=== PATIENT | male | born 1965 | race Caucasian/White ===

== ENCOUNTER 2018-05-21 14:33 | Emergency (ER) | payer OTHER ==
[~2018-05-21] VITALS: Ht 193 cm; Wt 117.9 kg
[2018-05-21 14:40] VITALS: BP 114/84
[2018-05-21] MEDS ORDERED: TETANUS-DIPTH-ACEL PERTUSSIS 0.5ML SYRG IM ONE (15:45)
[2018-05-21] MEDS ORDERED: LIDOCAINE 1% HCL (LOCAL ANESTH.) INJ 20ML MDV IJ ONE (15:45)
== END 2018-05-21 16:15 | disposition home or self-care (01) ==
LOC: ER 14:33
DX: S61.411A Laceration without foreign body of right hand, initial encounter (principal); F17.210 Nicotine dependence, cigarettes, uncomplicated; W54.0XXA Bitten by dog, initial encounter; Y93.89 Activity, other specified; Y99.8 Other external cause status; Y92.89 Other specified places as the place of occurrence of the external cause
CPT/HCPCS: 12002; 90471; 90715; 99283; J2001

== ENCOUNTER → 2018-06-24 | Outpatient (CLI) | payer OTHER ==
[2018-06-24 08:29] LABS: Urine WBC None Seen /hpf (0 - 3)
[2018-06-24 08:35] LABS: Basophils # (auto) 0 uL; Basophils % (auto) 0.5 % (0.0-2.0); Eosinophils # (auto) 0.3 uL; Eosinophils % (auto) 3.9 % (0.0-7.0); Hematocrit 49.1 % (41.0-53.0); Hemoglobin 16.4 g/dL (13.5-17.5); Lymphocytes # (auto) 2.1 uL; Lymphocytes % (auto) 25.4 % (10.0-50.0); Mean Corpuscular Hemoglobin 30.3 pg (28.0-32.0); Mean Corpuscular Hgb Conc. 33.3 g/dL (32.0-36.0); Monocytes # (auto) 0.6 uL; Monocytes % (auto) 7.7 % (0.0-12.0); Neutrophils % (auto) 62.5 % (37.0-80.0); Nucleated Red Blood Cells % 0.1 %; Platelet Count (auto) 210 10^3/uL (140-450); Red Cell Distribution Width 13.9 % (11.8-14.3); White Blood Cell 8.1 10^3/uL (4.4-10.8)
[2018-06-24 09:00] LABS: Urine Bacteria NONE SEEN /hpf (None Seen); Urine Blood Negative /uL (Negative); Urine Specific Gravity 1.023 (1.001-1.035)
[2018-06-24 10:05] LABS: Calcium 8.3 mg/dL (8.5-10.1); Potassium 4.1 mmol/L (3.5-5.1)
[2018-06-24 10:11] LABS: Albumin 3.5 g/dL (3.4-5.0); BUN/Creatinine Ratio 9.9; Bilirubin, Total 0.2 mg/dL (0.2-1.0); Total Protein 7.1 g/dL (6.4-8.2)
== END | disposition home or self-care (01) ==
LOC: LAB 08:11
PROVIDERS: ATTEND Nurse Practitioner
DX: K62.5 Hemorrhage of anus and rectum (principal); E78.5 Hyperlipidemia, unspecified
CPT/HCPCS: 36415; 80053; 80061; 81001; 82306; 82784; 83036; 83516; 84443; 85025; 86255

== ENCOUNTER → 2018-06-24 | Outpatient (CLI) | payer BC, OTHER | END | disposition home or self-care (01) | LOC: XYW 08:26 | PROVIDERS: ATTEND Internal Medicine Cardiovascular Disease | DX: R60.9 Edema, unspecified (principal) | CPT/HCPCS: 93306 ==

== ENCOUNTER → 2019-03-25 | Outpatient (CLI) | payer BC ==
[2019-03-25 16:37] LABS: Potassium 4.2 mmol/L (3.5-5.1)
[2019-03-25 16:45] LABS: Albumin 3.8 g/dL (3.4-5.0); BUN/Creatinine Ratio 9.9; Bilirubin, Total 0.4 mg/dL (0.2-1.0); Calcium 8.7 mg/dL (8.5-10.1); Total Protein 7.2 g/dL (6.4-8.2)
[2019-03-25 16:48] LABS: Basophils # (auto) 0.1 uL; Basophils % (auto) 0.8 % (0.0-2.0); Eosinophils # (auto) 0.3 uL; Hematocrit 47.1 % (41.0-53.0); Hemoglobin 15.9 g/dL (13.5-17.5); Lymphocytes # (auto) 2.9 uL; Lymphocytes % (auto) 29.8 % (10.0-50.0); Mean Corpuscular Hemoglobin 31.2 pg (28.0-32.0); Mean Corpuscular Hgb Conc. 33.8 g/dL (32.0-36.0); Mean Corpuscular Volume 92.5 fL (80.0-100.0); Monocytes # (auto) 0.8 uL; Neutrophils # (auto) 5.7 uL; Neutrophils % (auto) 58.4 % (37.0-80.0); Platelet Count (auto) 222 10^3/uL (140-450); Red Blood Cells 5.09 10^6/uL (4.5-5.90); Red Cell Distribution Width 14.2 % (11.8-14.3); White Blood Cell 9.8 10^3/uL (4.4-10.8)
== END | disposition home or self-care (01) ==
LOC: LAB 15:21
PROVIDERS: ATTEND Nurse Practitioner
DX: Z00.00 Encounter for general adult medical examination without abnormal findings (principal); E78.5 Hyperlipidemia, unspecified; R73.09 Other abnormal glucose
CPT/HCPCS: 36415; 80053; 82270; 83036; 85025

== ENCOUNTER → 2019-05-31 | Outpatient (CLI) | payer BC ==
[2019-05-31 09:58] LABS: Basophils # (auto) 0.1 uL; Basophils % (auto) 0.7 % (0.0-2.0); Eosinophils # (auto) 0.3 uL; Eosinophils % (auto) 3.3 % (0.0-7.0); Hematocrit 45.6 % (41.0-53.0); Hemoglobin 15.6 g/dL (13.5-17.5); Lymphocytes # (auto) 1.9 uL; Lymphocytes % (auto) 23.7 % (10.0-50.0); Mean Corpuscular Hemoglobin 31.4 pg (28.0-32.0); Mean Corpuscular Hgb Conc. 34.2 g/dL (32.0-36.0); Mean Corpuscular Volume 91.9 fL (80.0-100.0); Monocytes # (auto) 0.8 uL; Monocytes % (auto) 10.5 % (0.0-12.0); Neutrophils # (auto) 4.9 uL; Neutrophils % (auto) 61.8 % (37.0-80.0); Platelet Count (auto) 180 10^3/uL (140-450); Red Blood Cells 4.96 10^6/uL (4.5-5.90); Red Cell Distribution Width 13.6 % (11.8-14.3); White Blood Cell 7.9 10^3/uL (4.4-10.8)
[2019-05-31 11:07] LABS: Potassium 4.7 mmol/L (3.5-5.1)
[2019-05-31 11:19] LABS: Albumin 3.8 g/dL (3.4-5.0); BUN/Creatinine Ratio 13.2; Bilirubin, Total 0.6 mg/dL (0.2-1.0); Calcium 8.8 mg/dL (8.5-10.1); Total Protein 6.6 g/dL (6.4-8.2)
== END | disposition home or self-care (01) ==
LOC: LAB 08:50
PROVIDERS: ATTEND Nurse Practitioner
DX: E78.5 Hyperlipidemia, unspecified (principal); R73.9 Hyperglycemia, unspecified
CPT/HCPCS: 36415; 80053; 80061; 83036; 85025

== ENCOUNTER → 2019-09-06 | Outpatient (CLI) | payer BC ==
[2019-09-06 14:56] LABS: Basophils # (auto) 0.1 10 ^3/uL (0-0.2); Basophils % (auto) 1.1 % (0.0-2.0); Eosinophils # (auto) 0.7 10 ^3/uL (0-0.8); Eosinophils % (auto) 6.7 % (0.0-7.0); Hematocrit 47.9 % (41.0-53.0); Hemoglobin 16.2 g/dL (13.5-17.5); Lymphocytes # (auto) 2.7 10 ^3/uL (0.4-5.4); Lymphocytes % (auto) 24.3 % (10.0-50.0); Mean Corpuscular Hemoglobin 30.2 pg (28.0-32.0); Mean Corpuscular Hgb Conc. 33.8 g/dL (32.0-36.0); Mean Corpuscular Volume 89.4 fL (80.0-100.0); Monocytes # (auto) 1.1 10 ^3/uL (0-1.3); Monocytes % (auto) 9.8 % (0.0-12.0); Neutrophils # (auto) 6.4 10 ^3/uL (1.6-8.6); Neutrophils % (auto) 58.1 % (37.0-80.0); Nucleated Red Blood Cells % 0.1 %; Platelet Count (auto) 222 10^3/uL (140-450); Red Blood Cells 5.36 10^6/uL (4.5-5.90); Red Cell Distribution Width 13.2 % (11.8-14.3)
[2019-09-06 15:00] LABS: Urine Bacteria NONE SEEN /hpf (None Seen); Urine Blood Negative /uL (Negative); Urine WBC 2 /hpf (0 - 3)
[2019-09-06 15:11] LABS: INR 1.02 (0.9-1.15); Partial Thromboplastin Time 28.7 sec (23.64-32.05)
[2019-09-06 15:28] LABS: Albumin 3.7 g/dL (3.4-5.0); BUN/Creatinine Ratio 10.9; Calcium 9.1 mg/dL (8.5-10.1); Potassium 3.9 mmol/L (3.5-5.1)
[2019-09-06 15:31] LABS: Bilirubin, Total 0.4 mg/dL (0.2-1.0); Total Protein 7.6 g/dL (6.4-8.2)
== END | disposition home or self-care (01) ==
LOC: LAB 14:40
PROVIDERS: ATTEND Orthopaedic Surgery
DX: M70.20 Olecranon bursitis, unspecified elbow (principal); E78.5 Hyperlipidemia, unspecified
CPT/HCPCS: 36415; 80053; 81001; 85025; 85610; 85730

== ENCOUNTER → 2019-12-03 | Outpatient (CLI) | payer BC ==
[2019-12-03 09:28] LABS: Urine WBC None Seen /hpf (0 - 3)
[2019-12-03 10:06] LABS: Basophils # (auto) 0.1 10 ^3/uL (0-0.2); Basophils % (auto) 0.8 % (0.0-2.0); Eosinophils # (auto) 0.2 10 ^3/uL (0-0.8); Eosinophils % (auto) 2.3 % (0.0-7.0); Hematocrit 45.8 % (41.0-53.0); Hemoglobin 15.4 g/dL (13.5-17.5); Lymphocytes # (auto) 2.2 10 ^3/uL (0.4-5.4); Lymphocytes % (auto) 24.5 % (10.0-50.0); Mean Corpuscular Hemoglobin 29.9 pg (28.0-32.0); Mean Corpuscular Hgb Conc. 33.5 g/dL (32.0-36.0); Mean Corpuscular Volume 89.2 fL (80.0-100.0); Monocytes # (auto) 0.9 10 ^3/uL (0-1.3); Monocytes % (auto) 10.5 % (0.0-12.0); Neutrophils # (auto) 5.5 10 ^3/uL (1.6-8.6); Neutrophils % (auto) 61.9 % (37.0-80.0); Nucleated Red Blood Cells % 0.1 %; Platelet Count (auto) 219 10^3/uL (140-450); Red Blood Cells 5.14 10^6/uL (4.5-5.90); Red Cell Distribution Width 13.5 % (11.8-14.3)
[2019-12-03 10:20] LABS: Urine Bacteria NONE SEEN /hpf (None Seen); Urine Blood Negative /uL (Negative); Urine Mucus FEW (None Seen); Urine Specific Gravity 1.029 (1.001-1.035)
[2019-12-03 11:01] LABS: Albumin 3.8 g/dL (3.4-5.0); Calcium 8.7 mg/dL (8.5-10.1); Potassium 3.8 mmol/L (3.5-5.1)
[2019-12-03 11:05] LABS: BUN/Creatinine Ratio 11.9; Bilirubin, Total 0.7 mg/dL (0.2-1.0); Total Protein 7.1 g/dL (6.4-8.2)
== END | disposition home or self-care (01) ==
LOC: LAB 09:11
PROVIDERS: ATTEND Nurse Practitioner
DX: Z00.00 Encounter for general adult medical examination without abnormal findings (principal); E78.5 Hyperlipidemia, unspecified; R73.09 Other abnormal glucose
CPT/HCPCS: 36415; 80053; 80061; 81001; 83036; 84443; 85025

== ENCOUNTER → 2020-01-14 | Outpatient (CLI) | payer BC | END | disposition home or self-care (01) | LOC: LAB 12:33 | PROVIDERS: ATTEND Nurse Practitioner Family | DX: Z20.828 Contact with and (suspected) exposure to other viral communicable diseases (principal) ==

== ENCOUNTER → 2020-09-18 | Outpatient (CLI) | payer BC ==
[2020-09-18 08:49] LABS: Basophils # (auto) 0.1 10 ^3/uL (0-0.2); Basophils % (auto) 0.7 % (0.0-2.0); Eosinophils # (auto) 0.3 10 ^3/uL (0-0.8); Eosinophils % (auto) 4.1 % (0.0-7.0); Hematocrit 43.1 % (41.0-53.0); Hemoglobin 14.8 g/dL (13.5-17.5); Lymphocytes % (auto) 25.6 % (10.0-50.0); Mean Corpuscular Hemoglobin 30.3 pg (28.0-32.0); Mean Corpuscular Hgb Conc. 34.4 g/dL (32.0-36.0); Mean Corpuscular Volume 87.9 fL (80.0-100.0); Monocytes # (auto) 0.8 10 ^3/uL (0-1.3); Monocytes % (auto) 10.2 % (0.0-12.0); Neutrophils # (auto) 4.6 10 ^3/uL (1.6-8.6); Neutrophils % (auto) 59.4 % (37.0-80.0); Nucleated Red Blood Cells % 0.1 %; Platelet Count (auto) 209 10^3/uL (140-450); White Blood Cell 7.7 10^3/uL (4.4-10.8)
[2020-09-18 09:28] LABS: Urine Bacteria NONE SEEN /hpf (None Seen); Urine Blood Negative /uL (Negative); Urine Hyaline Cast FEW /lpf (0 - 2); Urine Mucus FEW (None Seen); Urine Specific Gravity 1.028 (1.001-1.035); Urine WBC 5 /hpf (0 - 3)
[2020-09-18 09:48] LABS: Potassium 4.2 mmol/L (3.5-5.1)
[2020-09-18 10:06] LABS: Albumin 3.7 g/dL (3.4-5.0); BUN/Creatinine Ratio 18.9; Bilirubin, Total 0.4 mg/dL (0.2-1.0); Calcium 8.7 mg/dL (8.5-10.1)
== END | disposition home or self-care (01) ==
LOC: LAB 08:32
PROVIDERS: ATTEND Nurse Practitioner
DX: I10 Essential (primary) hypertension (principal); E78.5 Hyperlipidemia, unspecified; R73.9 Hyperglycemia, unspecified
CPT/HCPCS: 36415; 80053; 80061; 81001; 83036; 84443; 85025

== ENCOUNTER → 2023-04-14 | Outpatient (CLI) | payer BC | END | disposition home or self-care (01) | LOC: XYW 07:28 | PROVIDERS: ATTEND Student in an Organized Health Care Education/Training Program | DX: I51.89 Other ill-defined heart diseases (principal); R06.02 Shortness of breath | CPT/HCPCS: 93306 ==

== ENCOUNTER 2023-04-17 10:22 | Inpatient (IN) | payer BC ==
[~2023-04-17] VITALS: Ht 193 cm; Wt 103.3 kg
[2023-04-17] MEDS ORDERED: ASPirin-EC 325mg tab PO ONE (11:15)
[2023-04-17 11:33] LABS: Basophils # (auto) 0.1 10 ^3/uL (0-0.2); Basophils % (auto) 0.9 % (0.0-2.0); Eosinophils # (auto) 0.3 10 ^3/uL (0-0.8); Eosinophils % (auto) 2.6 % (0.0-7.0); Hematocrit 47.2 % (41.0-53.0); Hemoglobin 15.8 g/dL (13.5-17.5); Lymphocytes # (auto) 1.8 10 ^3/uL (0.4-5.4); Lymphocytes % (auto) 17.3 % (10.0-50.0); Mean Corpuscular Hemoglobin 29.8 pg (28.0-32.0); Mean Corpuscular Hgb Conc. 33.4 g/dL (32.0-36.0); Mean Corpuscular Volume 89.4 fL (80.0-100.0); Monocytes % (auto) 9.6 % (0.0-12.0); Neutrophils # (auto) 7.1 10 ^3/uL (1.6-8.6); Neutrophils % (auto) 69.6 % (37.0-80.0); Nucleated Red Blood Cells % 0.1 %; Red Blood Cells 5.28 10^6/uL (4.5-5.90); Red Cell Distribution Width 16.4 % (11.8-14.3); White Blood Cell 10.3 10^3/uL (4.4-10.8)
[2023-04-17 11:41] LABS: Urine Bacteria NONE SEEN /hpf (None Seen); Urine Blood 1+ /uL (Negative); Urine Clarity Clear (Clear); Urine Color Yellow (Yellow); Urine Hyaline Cast MOD /lpf (0 - 2); Urine Mucus FEW (None Seen); Urine Protein, UAD 3+ (Negative); Urine Specific Gravity 1.027 (1.001-1.035); Urine Urobilinogen Normal (Negative); Urine WBC 4 /hpf (0 - 3); Urine pH 6.5 (5.0-8.0)
[2023-04-17 11:50] LABS: INR 1.1 (0.9-1.15); Prothrombin Time 11.5 sec (9.3-11.8)
[2023-04-17 11:50] LABS: Base Excess -2.9 mmol/L (-2.0-2.0)
[2023-04-17 11:51] LABS: Alanine Aminotransferase 22 U/L (7-40); Albumin 3.8 g/dL (3.2-4.8); Alkaline Phosphatase 204 U/L (46-116); Anion Gap 8 (5-15); Aspartate Aminotransferase 34 U/L (13-40); BUN/Creatinine Ratio 12.7 (10.0-20.0); Bilirubin, Total 0.6 mg/dL (0.2-1.0); Blood Urea Nitrogen 32 mg/dL (9-23); Calcium 8.9 mg/dL (8.7-10.4); Carbon Dioxide 22 mmol/L (20-30); Chloride 109 mmol/L (98-107); Glucose 123 mg/dL (74-106); Lipase 56 U/L (12-53); Potassium 4.7 mmol/L (3.5-5.1); Sodium 139 mmol/L (136-145); Total Protein 5.7 g/dL (5.7-8.2)
[2023-04-17] MEDS ORDERED: SODIUM CHLORIDE 0.9% 1,000 ML IV SCH (17:15)
[2023-04-17] MEDS ORDERED: MORPHINE SULFATE 4 MG/ML SYR/VIAL IV PRN (17:15)
[2023-04-17] MEDS ORDERED: NITROGLYCERIN 0.4 MG SL TAB SL PRN (17:15)
[2023-04-17] MEDS ORDERED: ONDANSETRON HCL 4 MG/2 ML VIAL IV PRN (17:15)
[2023-04-17] MEDS ORDERED: ACETAMINOPHEN 325 MG TAB PO PRN (17:15)
[2023-04-17 19:24] LABS: INR 1.11 (0.9-1.15); Prothrombin Time 11.6 sec (9.3-11.8)
[2023-04-17] MEDS ORDERED: ALBUTEROL SULF 2.5 MG/0.5ML(0.5%) NEB SOLN NEB PRN (19:30)
[2023-04-17 19:42] VITALS: BP 107/79; PULSE 74; RESP 20; O2SAT 96
[2023-04-17] MEDS ORDERED: ALBUTEROL MEDNEB 2.5 mg/3ml NEB NEB PRN (19:45)
[2023-04-17 20:04] VITALS: BP 144/102; PULSE 84; RESP 18; TEMP 98.1; O2SAT 99
[2023-04-17 20:28] LABS: Creatinine, Urine 144.16 mg/dL (30.0-125.0)
[2023-04-17] MEDS ORDERED: ATORVASTATIN 20 MG TAB PO SCH (22:00)
[2023-04-17] MEDS ORDERED: ALBUTEROL SULF HFA 90MCG INH 200DOSE IN SCH (22:00)
[2023-04-17] MEDS ORDERED: traZODone HCL 50 MG TAB PO SCH (22:00)
[2023-04-18] MEDS ORDERED: ASPirin 81 mg TAB PO SCH (10:00)
== END 2023-04-17 20:19 | disposition left against medical advice (07) | DRG 191 ==
LOC: ER 10:22 → TELE 17:39
PROVIDERS: ADMIT Nurse Practitioner Family; ATTEND Nurse Practitioner Family
DX: J44.1 Chronic obstructive pulmonary disease with (acute) exacerbation (principal); N17.9 Acute kidney failure, unspecified; F17.210 Nicotine dependence, cigarettes, uncomplicated; F32.A Depression, unspecified; F41.9 Anxiety disorder, unspecified; I10 Essential (primary) hypertension; Z53.29 Procedure and treatment not carried out because of patient's decision for other reasons
CPT/HCPCS: 36415; 36600; 71045; 78582; 80053; 81001; 82570; 82805; 83690; 83735; 83880; 84300; 84484; 85025; 85379; 85610; 93005; 93970; G0378

== ENCOUNTER → 2023-10-28 | Outpatient (CLI) | payer BC | END | disposition home or self-care (01) | LOC: XYW 08:03 | PROVIDERS: ATTEND Student in an Organized Health Care Education/Training Program | DX: I10 Essential (primary) hypertension (principal) | CPT/HCPCS: 93306 ==

== ENCOUNTER 2025-01-08 10:17 | Emergency (ER) | payer BC ==
[~2025-01-08] VITALS: Ht 177.8 cm; Wt 90.0 kg
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
[2025-01-08] MEDS ORDERED: DICL50TA2 PO (12:34)
[2025-01-08] MEDS ORDERED: CYCL-839 PO (12:34)
[2025-01-08 12:59] VITALS: BP 122/80; PULSE 69; RESP 16; TEMP 98.6; O2SAT 97
== END 2025-01-08 13:02 | disposition home or self-care (01) ==
LOC: EDBD 10:17 → ER 10:17
DX: M62.838 Other muscle spasm (principal); F17.210 Nicotine dependence, cigarettes, uncomplicated; F41.9 Anxiety disorder, unspecified; F32.A Depression, unspecified; V43.52XA Car driver injured in collision with other type car in traffic accident, initial encounter; Y93.89 Activity, other specified; Y92.410 Unspecified street and highway as the place of occurrence of the external cause; Y99.8 Other external cause status
CPT/HCPCS: 72040

== ENCOUNTER → 2025-02-08 | Outpatient (CLI) | payer BC ==
[~2025-02-08] VITALS: Ht 193 cm; Wt 90.7 kg
[~2025-02-08] MED LIST: CYCL-839 PO; DICL50TA2 PO
[2025-02-08] MEDS: REGADENOSON 0.4 MG/5 ML SYRG IV ONE ×2 (11:19→11:23)
--- NOTE | 2025-02-08 15:38 | DVHSR ---
APPROVED REPORT Exam: Nuclear Stress Test BMI: 0 Stress Test Details HR Max Heart Rate (APMHR): 162.159773 bpm Target HR (85% APMHR): 137.681583 bpm BP ECG Stress ECG Conclusion lvef 51% no severe ischemia is noted NM EXAM: Myocardial Perfusion REST/STRESS Imaging Protocol: Rest Tc-99m/Stress Tc-99m 1 day Resting Data Rest SPECT myocardial perfusion imaging was performed in supine position 60 minutes following the int ravenous injection of 10.9 mCi of Tc-99m Sestamibi. Time of rest injection: 09:50 Date: 02/08/2025 Time of rest imagin:50 Date: 02/08/2025 Administration Route: IV Administration Site: Right AC Pharmacologic Stress Pharmacologic stress test was performed by injecting Regadenoson 0.4 mg IV push followed by the intra venous injection of 30.7 mCi of Tc-99m Sestamibi. Time of stress injection: 11:15 Date: 02/08/2025 Time of stress imagin:15 Date: 02/08/2025 Administration Route: IV Administration Site: Right AC Gated Stress SPECT was performed 60 minutes after stress injection. The images were gated to evaluate regional wall motion and calculate left ventricular ejection fracti on. Stress only was performed in the Supine position. Nuclear Conclusion lvef 51% no severe ischemia is noted
== END | disposition home or self-care (01) ==
LOC: XYW 09:19
PROVIDERS: ATTEND Internal Medicine
DX: Z01.810 Encounter for preprocedural cardiovascular examination (principal); N18.6 End stage renal disease
CPT/HCPCS: 78452; 93017; A9500; J2785

== ENCOUNTER 2025-02-11 11:07 | Outpatient (CLI) | payer BC ==
[2025-02-11 11:40] LABS: Urine Protein, UAD 2+ (Negative)
[2025-02-11 11:53] LABS: INR 1.08 (0.9-1.15); Partial Thromboplastin Time 28.8 SEC (24.5-34.5); Prothrombin Time 11.4 sec (9.3-11.8)
[2025-02-11 12:12] LABS: Alanine Aminotransferase 13 U/L (7-40); Albumin 4.5 g/dL (3.2-4.8); Alkaline Phosphatase 88 U/L (46-116); Anion Gap 10 (5-15); BUN/Creatinine Ratio 3.8 (10.0-20.0); Bilirubin, Total 0.6 mg/dL (0.2-1.0); Carbon Dioxide 29 mmol/L (20-31); Chloride 101 mmol/L (98-107); Glucose 92 mg/dL (74-106); Potassium 4.5 mmol/L (3.5-5.1); Sodium 140 mmol/L (136-145); Total Protein 6.6 g/dL (5.7-8.2)
[2025-02-11 12:15] LABS: Blood Urea Nitrogen 26 mg/dL (9-23); Calcium 7.9 mg/dL (8.7-10.4)
== END 2025-02-11 17:00 | disposition home or self-care (01) ==
LOC: LAB 11:07
PROVIDERS: ATTEND Nurse Practitioner
DX: Z01.812 Encounter for preprocedural laboratory examination (principal); N18.6 End stage renal disease
CPT/HCPCS: 36415; 80053; 81001; 85610; 85730

== ENCOUNTER 2025-05-30 08:22 | Inpatient (IN) | payer BC ==
[~2025-05-30] VITALS: Ht 188 cm; Wt 97.5 kg
--- NOTE | 2025-05-30 09:23 | ED.PDOC ---
GI ASSESSMENT HPI Comments 59 year old male with PMHx cancer, ESRD presents to the ED with a chief complaint of nausea/vomiting onset 10 days. Patient states he has been experiencing nausea, vomiting, diarrhea for the past 10 days as well as diffused abdominal pain, generalized weakness. Patient states he feels dehydrated, came to ED today. Patient currently receives chemo 3 times a week. Denies fever, chills, hematemesis, dizziness, dysuria, hematuria, melena, blood in stool. No other symptoms or modifying factors present at this time. Chief Complaint: Nausea/Vomiting Time Seen by MD: 09:10 Primary Care Provider: LYDIA Sanders Notes: Medications, Allergies Allergies: Coded Allergies: NO KNOWN ALLERGIES (Unverified , 05/21/18) Home Meds Active Scripts Diclofenac Potassium (Diclofenac Potassium) 50 Mg Tab, 1 TAB PO TIDP for 10 Days, #30 TAB Prov:NY BARRIENTOS MD 01/08/25 Cyclobenzaprine Hcl (Cyclobenzaprine Hcl) 10 Mg Tab, 10 MG PO TID for 10 Days, #30 TAB Prov:NY BARRIENTOS MD 01/08/25 Information Source: Patient Mode of Arrival: Ambulatory Timing: Days Duration: Since onset Prehospital treatment: None Stool: Watery Severity: Moderate Recent: None Recent Hx of: None Pain Location: Diffuse Modifying Factors: Nothing Associated sign and symptoms: Nausea, Vomiting, Diarrhea, Abdominal Pain Past Medical History PAST MEDICAL HISTORY: Anxiety, Cancer, Depression, ESRD Surgical History: Denies all surgeries Family History Family History: Unknown Social History Smoker: Cigarettes Lives In: Home Constitutional: reports: weakness; denies: chills, diaphoresis, fatigue, fever, malaise, sweats, others EENTM: denies: blurred vision, double vision, ear bleeding, ear discharge, ear drainage, ear pain, ear ringing, eye pain, eye redness, hearing loss, mouth pain, mouth swelling, nasal discharge, nose bleeding, nose congestion, nose pain, photophobia, tearing, throat pain, throat swelling, voice changes, others Respiratory: denies: cough, hemoptysis, orthopnea, SOB at rest, shortness of breath, SOB with excertion, stridor, wheezing, others Cardiovascular: denies: chest pain, dizzy spells, diaphoresis, Dyspnea on exertion, edema, irregular heart beat, left arm pain, lightheadedness, palpitations, PND, syncope, others Gastrointestinal: reports: abdominal pain, diarrhea, nausea, vomiting; denies: abdomen distended, blood streaked bowels, constipated, dysphagia, difficulty swallowing, hematemesis, melena, poor appetite, poor fluid intake, rectal bleeding, rectal pain, others Genitourinary: denies: burning, dysuria, flank pain, frequency, hematuria, incontinence, penile discharge, penile sore, pain, testicle pain, testicle swelling, urgency, others Neurological: reports: weakness; denies: dizziness, fainting, headache, left sided numbness, left sided weakness, numbness, paresthesia, pre-existing deficit, right sided numbness, right sided weakness, seizure, speech problems, tingling, tremors, others Musculoskeletal: denies: back pain, gout, joint pain, joint swelling, muscle pain, muscle stiffness, neck pain, others Integumetry: denies: bruises, change in color, change in hair/nails, dryness, laceration, lesions, lumps, rash, wounds, others Allergic/Immunocompromised: denies: Difficulty Healing, Frequent Infections, Hives, Itching, others Hematologic/Lymphatic: denies: anemia, blood clots, easy bleeding, easy bruising, swollen glands, others Endocrine: denies: excessive hunger, excessive sweating, excessive thirst, excessive urination, flushing, intolerance to cold, intolerance to heat, unexplained weight gain, unexplained weight loss, others Psychiatric: denies: anxiety, bipolar disorder, depression, hopeless, panic disorder, schizophrenia, sleepless, suicidal, others All Other Systems: Reviewed and Negative Physical Exam General Appearance: Moderate Distress, Normal HEENT: Normal ENT Inspection, Pharynx Normal, TMs Normal Neck: Full Range of Motion, Non-Tender, Normal, Normal Inspection Respiratory: Chest Non-Tender, Lungs Clear, No Accessory Muscle Use, No Respiratory Distress, Normal Breath Sounds Cardiovascular: No Edema, No JVD, No Murmur, No Gallop, Normal Peripheral Pulses, Regular Rate/Rhythm Breast Exam: Deferred Gastrointestinal: No Organomegaly, Non Tender, No Pulsatile Mass, Normal Bowel Sounds, Soft Genitalia: Deferred Pelvic: Deferred Rectal: Deferred Extremities: No calf tenderness, Normal capillary refill, Normal inspection, Normal range of motion, Non-tender, No pedal edema Musculoskeletal : Apperance: Normal Neurologic: Alert, carburetor repairer II-XII nml as Tested, No Motor Deficits, Normal Affect, Normal Mood, No Sensory Deficits Cerebellar Function: Normal Reflexes: Normal Skin: Dry, Normal Color, Warm Lymphatic: No Adenopathy Was a procedure done? Was a procedure done?: No GI differential Dx Differential Diagnosis: Dehydration, Electrolyte Imbalance, Viral X-Ray, Labs, Meds, VS Vital Signs Date Time Temp Pulse Resp B/P (MAP) Pulse Ox O2 Delivery O2 Flow Rate FiO2 05/30/25 11:26 98.7 89 12 134/101 (112) 96 98.7 05/30/25 11:22 78 16 118/68 05/30/25 10:06 91 12 120/89 05/30/25 09:34 99.3 91 12 120/89 (99) 97 99.3 05/30/25 08:27 99.1 93 18 148/94 98 99.1 Lab Test 05/30/25 09:57 Range/Units Sodium Level 138 136-145 mmol/L Potassium Level 4.6 3.5-5.1 mmol/L Chloride Level 98 98-107 mmol/L Carbon Dioxide Level 21 20-31 mmol/L Anion Gap 19 H 5-15 Blood Urea Nitrogen 58 H 9-23 mg/dL Creatinine 9.31 H 0.700-1.30 mg/dL Glomerular Filtration Rate Calc 6 >90 mL/min BUN/Creatinine Ratio 6.2 L 10.0-20.0 Serum Glucose 88 74-106 mg/dL Lactic Acid Level 1.2 0.4-2.0 mmol/L Calcium Level 7.6 L 8.7-10.4 mg/dL Total Bilirubin 0.5 0.2-1.0 mg/dL Aspartate Amino Transferase (AST) 31 13-40 U/L Alanine Aminotransferase (ALT) 19 7-40 U/L Alkaline Phosphatase 66 46-116 U/L Total Protein 6.8 5.7-8.2 g/dL Albumin 4.3 3.2-4.8 g/dL Lipase 29 12-53 U/L Current Medications Medications (Trade) Dose Ordered Sig/Leda Route Start Time Stop Time Status Last Admin Sodium Chloride 1,000 ml @ 1,000 mls/hr Q1H ONCE IV 05/30/25 09:30 05/30/25 10:29 DC 05/30/25 10:08 Pantoprazole Sodium (Protonix) 40 mg ONCE ONCE IV 05/30/25 09:30 05/30/25 09:31 DC 05/30/25 10:05 Ondansetron HCl (Zofran) 4 mg ONCE ONCE IV 05/30/25 09:30 05/30/25 09:31 DC 05/30/25 10:05 Morphine Sulfate 4 mg ONCE ONCE IV 05/30/25 09:30 05/30/25 09:31 DC 05/30/25 10:06 Sodium Chloride 1,000 ml @ 1,000 mls/hr Q1H ONCE IV 05/30/25 12:00 05/30/25 12:59 DC 05/30/25 12:04 Time of 1ST Reevaluation: 09:40 Reevaluation 1ST: Unchanged Patient Education/Counseling: Diagnosis, Treatment, Prognosis Family Education/Counseling: No Family Present SEPSIS Sepsis Screen Date sepsis recognized/suspect: May 30, 2025 Time Sepsis recognized/suspect: 828 Recent Procedure: No On Antibiotic Therapy: No Respiratory Rate >20: No Heart Rate >90: Yes Temp<36 C (96.8 F) or >38.3 C: No SBP <90 or MAP <65 mmHG: No New Acute Mental Status Change: No Is the patient on CPAP, BIPAP,: No Physician Orders Complete Blood Count (05/30/25 11:46) Chest Portable (05/30/25 12:53) Vital Signs Date Time Temp Pulse Resp B/P (MAP) Pulse Ox O2 Delivery O2 Flow Rate FiO2 05/30/25 11:26 98.7 89 12 134/101 (112) 96 98.7 05/30/25 11:22 78 16 118/68 05/30/25 10:06 91 12 120/89 05/30/25 09:34 99.3 91 12 120/89 (99) 97 99.3 05/30/25 08:27 99.1 93 18 148/94 98 99.1 Laboratory Tests Test 05/30/25 09:57 Lactic Acid Level 1.2 mmol/L (0.4-2.0) Medications Medications Dose Ordered Sig/Leda Route Start Time Stop Time Status Last Admin Dose Admin Morphine Sulfate 4 mg ONCE ONCE IV 05/30/25 09:30 05/30/25 09:31 DC 05/30/25 10:06 Ondansetron HCl 4 mg ONCE ONCE IV 05/30/25 09:30 05/30/25 09:31 DC 05/30/25 10:05 Pantoprazole Sodium 40 mg ONCE ONCE IV 05/30/25 09:30 05/30/25 09:31 DC 05/30/25 10:05 Sodium Chloride 1,000 ml @ 1,000 mls/hr Q1H ONCE IV 05/30/25 09:30 05/30/25 10:29 DC 05/30/25 10:08 Sodium Chloride 1,000 ml @ 1,000 mls/hr Q1H ONCE IV 05/30/25 12:00 05/30/25 12:59 DC 05/30/25 12:04 Departure 1 Departure Time of Disposition: 13:12 (Patient with intractable pain and inability to tolerate p.o.. Patient also diffuse watery diarrhea. We will admit patient for further workup and expert consultation) Impression: Primary Impression: Severe dehydration Additional Impressions: Diarrhea Intractable pain Cancer Disposition: ADMITTED INPATIENT Admit to: Med Surg Condition: Guarded Critical Care Note Critical Care Time?: No Stability Stability form required: No Heart Score Heart Score: Heart Score Response (Comments) Value History N/A 0 EKG N/A 0 Age N/A 0 Risk Factors N/A 0 Troponin N/A 0 Total 0 I personally scribed for DAO DAVIS MD ([email or web address]) on 05/30/25 at 09:23. Electronically submitted by Grace Jerry ([email or web address]). I personally scribed for DAO DAVIS MD ([email or web address]) on 05/30/25 at 09:23. Electronically submitted by Grace Jerry ([email or web address]). DAO DAVIS MD May 30, 2025 09:23
[2025-05-30] MEDS: PANTOPRAZOLE 40 MG/10 ML VIAL INJ IV ONE (10:05)
[2025-05-30] MEDS: ONDANSETRON HCL 4 MG/2 ML VIAL IV ONE (10:05)
[2025-05-30] MEDS: MORPHINE SULFATE 4 MG/ML SYR/VIAL IV ONE (10:06)
[2025-05-30] MEDS: SODIUM CHLORIDE 0.9% 1,000 ML IV ONE ×2 (10:08→12:04)
[2025-05-30 10:31] LABS: Alanine Aminotransferase 19 U/L (7-40); Alkaline Phosphatase 66 U/L (46-116); Anion Gap 19 (5-15); BUN/Creatinine Ratio 6.2 (10.0-20.0); Carbon Dioxide 21 mmol/L (20-31); Glucose 88 mg/dL (74-106); Lipase 29 U/L (12-53); Potassium 4.6 mmol/L (3.5-5.1); Sodium 138 mmol/L (136-145); Total Protein 6.8 g/dL (5.7-8.2)
[2025-05-30 10:32] LABS: Albumin 4.3 g/dL (3.2-4.8); Bilirubin, Total 0.5 mg/dL (0.2-1.0)
[2025-05-30 10:35] LABS: Blood Urea Nitrogen 58 mg/dL (9-23); Calcium 7.6 mg/dL (8.7-10.4); Chloride 98 mmol/L (98-107)
[2025-05-30 13:31] LABS: Hemoglobin 8.2 g/dL (13.5-17.5); Nucleated Red Blood Cells % 0.2 %
[2025-05-30 13:32] LABS: Hematocrit 24.5 % (41.0-53.0); Mean Corpuscular Hemoglobin 34.5 pg (28.0-32.0); Mean Corpuscular Volume 103.5 fL (80.0-100.0)
--- NOTE | 2025-05-30 13:46 | DVH ---
CHEST RADIOGRAPH Indication: epigastric pain Technique: Single frontal view of the chest was obtained Comparison: XY CHEST XRAY 1 VIEW on DOS: 04/17/23 FINDINGS: Lines and Tubes: Right IJ double-lumen hemodialysis catheter. Lungs: [id number] pulmonary edema. No focal consolidation. Pleura: No effusion. No pneumothorax. Cardiomediastinal contours: Unremarkable Bones: No acute osseous abnormality. IMPRESSION: 1. [id number] pulmonary edema. No focal consolidation.
[2025-05-30] MEDS ORDERED: DOCUSATE SOD 100 MG CAP PO PRN (14:45)
[2025-05-30] MEDS ORDERED: PANT40T PO (15:02)
[2025-05-30] MEDS ORDERED: CARV25TA55 PO (15:02)
[2025-05-30] MEDS ORDERED: GABA-1251 PO (15:03)
[2025-05-30] MEDS ORDERED: LISI40TA16 PO (15:03)
[2025-05-30] MEDS ORDERED: AMLO1TAB22 PO (15:03)
[2025-05-30] MEDS ORDERED: TRAZ-228 PO (15:03)
[2025-05-30] MEDS ORDERED: CALC667C PO (15:03)
--- NOTE | 2025-05-30 15:05 | DVHHP2 ---
History of Present Illness Reason for Visit: Nausea and vomiting History of Present Illness Wilian Johnson is a 59-year-old male with past medical history of hypertension, hyperlipidemia, ESRD on HD, cancer, depression, and anxiety, who came to the hospital for nausea and vomiting. Patient states he has been experiencing nausea and vomiting intermittently for the last 10 days. He states he was last able to eat a sandwich a couple days ago and keep it down. Today after receiving fluids and medications he was able to eat some food and keep it down. Cardiovascular: HTN, hyperipidemia Pulmonary: COPD Renal/: Acute renal failure Past Surgical History: Other (left knee) Smoke: No ALCOHOL: none Drugs: None Lives: Alone Domestic Violence: Neg Review of Systems Constitutional: No: Fever, Chills, Sweats, Weakness, Malaise, Other Eyes: No: Pain, Vision change, Conjunctivae inflammation, Eyelid inflammation, Other, Redness ENT: No: Ear pain, Ear discharge, Nose pain, Nose discharge, Nose congestion, Mouth pain, Mouth swelling, Throat pain, Throat swelling, Other Respiratory: No: Cough, Dry, Shortness of breath, SOB with excertion, Wheezing, Hemoptysis, Pleuritic Pain, Sputum, Wheezing, Other Cardiovascular: No: Chest Pain, Palpitations, Orthopnea, Paroxysmal Noc. Dyspnea, Edema, Lt Headedness, Other Gastrointestinal: Nausea, Vomiting, Abdominal Pain; No: Diarrhea, Constipation, Melena, Hematochezia, Other Genitourinary: No Dysuria, No Frequency, No Incontinence, No Hematuria, No Retention, No Other Musculoskeletal: No: other, neck pain, shoulder pain, arm pain, back pain, hand pain, leg pain, foot pain Skin: No: Rash, Lesions, Jaundice, Bruising, Other Neurological: No: Weakness, Numbness, Incoordination, Change in speech, Confusion, Seizures, Other Allergies: Coded Allergies: NO KNOWN ALLERGIES (Unverified , 05/21/18) Medications Current Medications Medications Dose Ordered Sig/Leda Route Start Time Stop Time Status Last Admin Dose Admin Acetaminophen/ Hydrocodone Bitart 1 tab Q4HP PRN PO 05/30/25 14:45 Ondansetron HCl 4 mg Q4HP PRN IV 05/30/25 14:45 Docusate Sodium 100 mg BIDPRN PRN PO 05/30/25 14:45 Acetaminophen 650 mg Q6HP PRN PO 05/30/25 14:45 Exam Vital Signs Vital Signs Date Time Temp Pulse Resp B/P (MAP) Pulse Ox O2 Delivery O2 Flow Rate FiO2 05/30/25 14:46 98.6 88 16 136/94 (108) 96 98.6 General Appearance: Alert, Oriented X3, Cooperative, mild distress HEENT: Atraumatic, PERRLA Respiratory: Clear to auscultation, Normal air movement Cardiovascular: Regular rate, Normal S1, No murmurs, Gallops Abdominal: Normal bowel sounds, Soft, No tenderness Extremities: No clubbing, No cyanosis, No edema, Normal pulses Skin: No rashes, No breakdown, No significant lesion Neuro: Normal gait, Normal speech, Other (generalized weakness) Psych/Mental Status: Mental status NL, Mood NL Labs/Xrays Labs Test 05/30/25 13:00 05/30/25 09:57 Range/Units White Blood Count 3.1 L 4.4-10.8 10^3/uL Red Blood Count 2.37 L 4.5-5.90 10^6/uL Hemoglobin 8.2 L 13.5-17.5 g/dL Hematocrit 24.5 L 41.0-53.0 % Mean Corpuscular Volume 103.5 H 80.0-100.0 fL Mean Corpuscular Hemoglobin 34.5 H 28.0-32.0 pg Mean Corpuscular Hemoglobin Concent 33.3 32.0-36.0 g/dL Red Cell Distribution Width 16.5 H 11.8-14.3 % Platelet Count 97 L 140-450 10^3/uL Mean Platelet Volume 9.8 6.9-10.8 fL Neutrophils (%) (Auto) 56.2 37.0-80.0 % Lymphocytes (%) (Auto) 18.1 10.0-50.0 % Monocytes (%) (Auto) 14.2 H 0.0-12.0 % Eosinophils (%) (Auto) 9.9 H 0.0-7.0 % Basophils (%) (Auto) 1.6 0.0-2.0 % Neutrophils # (Auto) 1.7 1.6-8.6 10 ^3/uL Lymphocytes # (Auto) 0.6 0.4-5.4 10 ^3/uL Monocytes # (Auto) 0.4 0-1.3 10 ^3/uL Eosinophils # (Auto) 0.3 0-0.8 10 ^3/uL Basophils # (Auto) 0 0-0.2 10 ^3/uL Nucleated Red Blood Cells 0.2 % Sodium Level 138 136-145 mmol/L Potassium Level 4.6 3.5-5.1 mmol/L Chloride Level 98 98-107 mmol/L Carbon Dioxide Level 21 20-31 mmol/L Anion Gap 19 H 5-15 Blood Urea Nitrogen 58 H 9-23 mg/dL Creatinine 9.31 H 0.700-1.30 mg/dL Glomerular Filtration Rate Calc 6 >90 mL/min BUN/Creatinine Ratio 6.2 L 10.0-20.0 Serum Glucose 88 74-106 mg/dL Lactic Acid Level 1.2 0.4-2.0 mmol/L Calcium Level 7.6 L 8.7-10.4 mg/dL Total Bilirubin 0.5 0.2-1.0 mg/dL Aspartate Amino Transferase (AST) 31 13-40 U/L Alanine Aminotransferase (ALT) 19 7-40 U/L Alkaline Phosphatase 66 46-116 U/L Total Protein 6.8 5.7-8.2 g/dL Albumin 4.3 3.2-4.8 g/dL Lipase 29 12-53 U/L CHEST RADIOGRAPH FINDINGS: Lines and Tubes: Right IJ double-lumen hemodialysis catheter. Lungs: [id number] pulmonary edema. No focal consolidation. Pleura: No effusion. No pneumothorax. Cardiomediastinal contours: Unremarkable Bones: No acute osseous abnormality. IMPRESSION: 1. [id number] pulmonary edema. No focal consolidation. SEPSIS Sepsis Screen Date sepsis recognized/suspect: May 30, 2025 Time Sepsis recognized/suspect: 828 Recent Procedure: No On Antibiotic Therapy: No Respiratory Rate >20: No Heart Rate >90: Yes Temp<36 C (96.8 F) or >38.3 C: No SBP <90 or MAP <65 mmHG: No New Acute Mental Status Change: No Is the patient on CPAP, BIPAP,: No Physician Orders Chest Portable (05/30/25 12:53) Admit (05/30/25 14:34) Code Status (05/30/25 14:34) Hydrocodone-Acet 5/325mg Tab ([place] 5/32 (05/30/25 14:45) Ondansetron Hcl (Zofran) (05/30/25 14:45) Docusate Sodium Capsule (Colace Capsule) (05/30/25 14:45) Complete Blood Count (05/31/25 04:00) Comprehensive Metabolic Panel (05/31/25 04:00) Condition: Serious (05/30/25 14:34) Acetaminophen Tablet (Tylenol Tablet) (05/30/25 14:45) Clear Liq Diet (05/30/25 Dinner) Vital Signs Date Time Temp Pulse Resp B/P (MAP) Pulse Ox O2 Delivery O2 Flow Rate FiO2 05/30/25 14:46 98.6 88 16 136/94 (108) 96 98.6 05/30/25 11:26 98.7 89 12 134/101 (112) 96 98.7 05/30/25 11:22 78 16 118/68 05/30/25 10:06 91 12 120/89 05/30/25 09:34 99.3 91 12 120/89 (99) 97 99.3 05/30/25 08:27 99.1 93 18 148/94 98 99.1 Laboratory Tests Test 05/30/25 09:57 05/30/25 13:00 Lactic Acid Level 1.2 mmol/L (0.4-2.0) White Blood Count 3.1 10^3/uL (4.4-10.8) L Medications Medications Dose Ordered Sig/Leda Route Start Time Stop Time Status Last Admin Dose Admin Morphine Sulfate 4 mg ONCE ONCE IV 05/30/25 09:30 05/30/25 09:31 DC 05/30/25 10:06 4 MG Ondansetron HCl 4 mg ONCE ONCE IV 05/30/25 09:30 05/30/25 09:31 DC 05/30/25 10:05 4 MG Pantoprazole Sodium 40 mg ONCE ONCE IV 05/30/25 09:30 05/30/25 09:31 DC 05/30/25 10:05 40 MG Sodium Chloride 1,000 ml @ 1,000 mls/hr Q1H ONCE IV 05/30/25 09:30 05/30/25 10:29 DC 05/30/25 10:08 1,000 MLS/HR Sodium Chloride 1,000 ml @ 1,000 mls/hr Q1H ONCE IV 05/30/25 12:00 05/30/25 12:59 DC 05/30/25 12:04 1,000 MLS/HR Assessment/Plan Assessment/Plan Assessment: Severe dehydration, Intractable nausea and vomiting, ESRD on HD, Thrombocytopenia, Plan: Admit to Med-Surg, IV hydration, Clear liquid diet, advance as tolerated, Antiemetics, Consider GI consult if symptoms continue, Plan discussed with: Patient My Orders Orders - JOSHUA WARE Procedure Category Date Status Time Admit ADMIT 05/30/25 Transmitted 14:34 Code Status CODE 05/30/25 Transmitted 14:34 Hydrocodone-Acet PHA 05/30/25 In Process 5/325mg Tab ([place] 14:45 Ondansetron Hcl PHA 05/30/25 In Process (Zofran) 14:45 Docusate Sodium PHA 05/30/25 In Process Capsule (Colace 14:45 Complete Blood Count LAB 05/31/25 Verified 04:00 Comprehensive LAB 05/31/25 Verified Metabolic Panel 04:00 Condition: Serious DIANNA 05/30/25 In Process 14:34 Acetaminophen Tablet PHA 05/30/25 In Process (Tylenol Tablet) 14:45 Clear Liq Diet DIET 05/30/25 Transmitted Dinner Date of Service: May 30, 2025 Billing Provider: JOSHUA WARE Common Visit Codes: [id number] INP/OBS CARE (HIGH) JOSHUA WARE May 30, 2025 15:04
[2025-05-30 16:30] VITALS: BP 151/90; PULSE 80; RESP 18; TEMP 98.1; O2SAT 96
[2025-05-30] MEDS ORDERED: METOCLOPRAMIDE HCL 5MG/ml INJ 2ml VIAL IV PRN (18:00)
[2025-05-30] MEDS: HYDROcodone-ACET 5/325MG TAB PO PRN (18:01)
[2025-05-30 21:00] VITALS: BP 137/96; PULSE 92; RESP 18; TEMP 100.8; O2SAT 92
[2025-05-30] MEDS: CARVEDILOL 12.5 MG TAB PO SCH (21:16)
[2025-05-30] MEDS: CALCIUM ACETATE 667 MG CAP PO SCH (21:17)
[2025-05-30] MEDS: GABAPENTIN 400 MG CAP PO SCH (21:17)
[2025-05-30] MEDS ORDERED: PATIENTS OWN MEDICATION (Carvedilol 1 TAB) PO SCH (22:00)
[2025-05-31] VITALS (7 sets, daily range): BP systolic 111–160; BP diastolic 78–99; PULSE 61–94; RESP 16–20; TEMP 97.5–100.1; O2SAT 86–93
[2025-05-31 06:49] LABS: Hematocrit 24.1 % (41.0-53.0); Hemoglobin 8.2 g/dL (13.5-17.5); Mean Corpuscular Hemoglobin 35.3 pg (28.0-32.0); Mean Corpuscular Volume 104.3 fL (80.0-100.0)
[2025-05-31 06:54] LABS: Alanine Aminotransferase 16 U/L (7-40); Albumin 4.0 g/dL (3.2-4.8); Alkaline Phosphatase 59 U/L (46-116); Anion Gap 18 (5-15); BUN/Creatinine Ratio 6.3 (10.0-20.0); Bilirubin, Total 0.3 mg/dL (0.2-1.0); Blood Urea Nitrogen 69 mg/dL (9-23); Calcium 7.5 mg/dL (8.7-10.4); Carbon Dioxide 22 mmol/L (20-31); Chloride 102 mmol/L (98-107); Glucose 88 mg/dL (74-106); Potassium 4.6 mmol/L (3.5-5.1); Sodium 142 mmol/L (136-145); Total Protein 6.2 g/dL (5.7-8.2)
[2025-05-31 08:31] LABS: Total Cells Counted 100.0 (100)
[2025-05-31] MEDS: LISINOPRIL 20 MG TAB PO SCH (10:00)
[2025-05-31] MEDS ORDERED: PATIENTS OWN MEDICATION (Lisinopril 1 TAB) PO SCH (10:00)
--- NOTE | 2025-05-31 10:05 | DVHINCON2 ---
Date of service: May 31, 2025 Referring Physician Romy Lal NP Reason for Consultation ESRD History of Present Illness Wilian is a 59-year-old male with known history of ESRD on maintenance hemodialysis who presents for further evaluation and management of several-day history of reported intractable nausea and vomiting and inability to tolerate oral intake. He is seen in his room awake alert conversant and in no acute distress this morning. He states that his nausea has improved significantly. He denies presyncopal symptoms currently. He denies recent fevers, chills, diarrhea. Past Medical History ESRD COPD Anemia Depression Allergies: Coded Allergies: NO KNOWN ALLERGIES (Unverified , 05/21/18) Home Meds Active Scripts Diclofenac Potassium (Diclofenac Potassium) 50 Mg Tab, 1 TAB PO TIDP for 10 Days, #30 TAB Prov:NY BARRIENTOS MD 01/08/25 Cyclobenzaprine Hcl (Cyclobenzaprine Hcl) 10 Mg Tab, 10 MG PO TID for 10 Days, #30 TAB Prov:NY BARRIENTOS MD 01/08/25 Reported Medications Calcium Acetate (Phosphate Bin (Calcium Acetate) 667 Mg Cap, 2 CAP PO TID 05/30/25 Lisinopril (Lisinopril) 40 Mg Tab, 1 TAB PO DAILY 05/30/25 Amlodipine Besylate (Amlodipine Besylate) 5 Mg Tab, 1 TAB PO DAILY 05/30/25 Gabapentin (Gabapentin) 400 Mg Cap, 1 CAP PO HS 05/30/25 Trazodone Hcl (Trazodone Hcl) 100 Mg Tab, 3 TAB PO HS 05/30/25 Pantoprazole Sodium Sesquihydr (Pantoprazole Sodium) 40 Mg Tab, 1 TAB PO DAILY 05/30/25 Carvedilol (Carvedilol) 25 Mg Tab, 1 TAB PO BID 05/30/25 Current Medications Current Medications Medications (Trade) Dose Ordered Sig/Leda Route PRN Reason Start Time Stop Time Status Last Admin Acetaminophen/ Hydrocodone Bitart (Geraldine 5/325MG Tab) 1 tab Q4HP PRN PO MODERATE PAIN (4-6 PAIN SCALE) 05/30/25 14:45 05/30/25 18:01 Ondansetron HCl (Zofran) 4 mg Q4HP PRN IV NAUSEA / VOMITING 05/30/25 14:45 Docusate Sodium (Colace Capsule) 100 mg BIDPRN PRN PO FOR CONSTIPATION 05/30/25 14:45 Acetaminophen (Tylenol Tablet) 650 mg Q6HP PRN PO PAIN SCALE 1-3 OR TEMP>100.4 05/30/25 14:45 Amlodipine Besylate (Norvasc Tablet) 5 mg DAILY PO 05/31/25 10:00 Calcium Acetate (Phoslo Capsule) 667 mg TID PO 05/30/25 22:00 05/31/25 05:49 Gabapentin (Neurontin Capsule) 400 mg HS PO 05/30/25 22:00 05/30/25 21:17 Pantoprazole Sodium (Protonix Tablet) 40 mg DAILY PO 05/31/25 10:00 Patient Own Medication 1 tab BID PO 05/30/25 22:00 UNV Patient Own Medication 1 tab DAILY PO 05/31/25 10:00 UNV Patient Own Medication 3 tab HS PO 05/30/25 22:00 UNV Carvedilol (Coreg Tablet) 25 mg BID PO 05/30/25 22:00 05/30/25 21:16 Lisinopril (Zestril Tablet) 40 mg DAILY PO 05/31/25 10:00 Trazodone HCl (Desyrel) 300 mg HS PO 05/30/25 22:00 05/30/25 21:17 Metoclopramide HCl (Reglan Injection) 10 mg Q6HPRN PRN IV NAUSEA / VOMITING 05/30/25 18:00 Review of Systems As per history of present illness otherwise all systems are reviewed and are noncontributory. H&P Exam Vital Signs/I&O Vital Sign Date Time Temp Pulse Resp B/P (MAP) Pulse Ox O2 Delivery O2 Flow Rate FiO2 05/31/25 01:00 99.7 61 16 121/88 (99) 93 99.7 05/30/25 20:00 Room Air* 0 21 Intake and Output 05/30/25 05/31/25 18:59 06:59 Intake Total 2000 ml 300 ml Balance 2000 ml 300 ml Intake Oral 300 ml IV Total 2000 ml # Voids 1 Physical Exam Gen: nad, chronically ill-appearing. heent: nc/at, mmm lungs: cta anteriorly cvs: no rub abd: soft, bowel sounds audible ext: no edema skin: no rash neuro: alert and oriented Labs/Diagnostic Data Labs/Diagnostic Data Laboratory Tests Test 05/31/25 06:00 05/30/25 13:00 05/30/25 09:57 Range/Units White Blood Count 2.6 L 3.1 L 4.4-10.8 10^3/uL Red Blood Count 2.31 L 2.37 L 4.5-5.90 10^6/uL Hemoglobin 8.2 L 8.2 L 13.5-17.5 g/dL Hematocrit 24.1 L 24.5 L 41.0-53.0 % Mean Corpuscular Volume 104.3 H 103.5 H 80.0-100.0 fL Mean Corpuscular Hemoglobin 35.3 H 34.5 H 28.0-32.0 pg Mean Corpuscular Hemoglobin Concent 33.9 33.3 32.0-36.0 g/dL Red Cell Distribution Width 16.2 H 16.5 H 11.8-14.3 % Platelet Count 117 L 97 L 140-450 10^3/uL Mean Platelet Volume 7.5 9.8 6.9-10.8 fL Neutrophils (%) (Auto) 56.2 37.0-80.0 % Lymphocytes (%) (Auto) 18.1 10.0-50.0 % Monocytes (%) (Auto) 14.2 H 0.0-12.0 % Basophils (%) (Auto) 1.6 0.0-2.0 % Neutrophils # (Auto) 1.7 1.6-8.6 10 ^3/uL Lymphocytes # (Auto) 0.6 0.4-5.4 10 ^3/uL Monocytes # (Auto) 0.4 0-1.3 10 ^3/uL Differential Total Cells Counted 100.0 100 Neutrophils % (Manual) 57 37.0-80.0 Band Neutrophils % (Manual) 0 Lymphocytes % (Manual) 18 10.0-50.0 Monocytes % (Manual) 12 0-12 Eosinophils % (Manual) 12 H 0-7 Basophils % (Manual) 0 0.0-2.0 Metamyelocytes % (manual) 1 Myelocytes % (Manual) 0 Promyelocytes % (Manual) 0 Blast Cells % (Manual) 0 Reactive Lymphocytes 0 Platelet Estimate Decrea Clumped Platelets Many Sodium Level 142 138 136-145 mmol/L Potassium Level 4.6 4.6 3.5-5.1 mmol/L Chloride Level 102 98 98-107 mmol/L Carbon Dioxide Level 22 21 20-31 mmol/L Anion Gap 18 H 19 H 5-15 Blood Urea Nitrogen 69 #H 58 H 9-23 mg/dL Creatinine 10.90 *H 9.31 H 0.700-1.30 mg/dL Glomerular Filtration Rate Calc 5 6 >90 mL/min BUN/Creatinine Ratio 6.3 L 6.2 L 10.0-20.0 Serum Glucose 88 88 74-106 mg/dL Calcium Level 7.5 L 7.6 L 8.7-10.4 mg/dL Total Bilirubin 0.3 0.5 0.2-1.0 mg/dL Aspartate Amino Transferase (AST) 19 31 13-40 U/L Alanine Aminotransferase (ALT) 16 19 7-40 U/L Alkaline Phosphatase 59 66 46-116 U/L Total Protein 6.2 6.8 5.7-8.2 g/dL Albumin 4.0 4.3 3.2-4.8 g/dL Eosinophils (%) (Auto) 9.9 H 0.0-7.0 % Eosinophils # (Auto) 0.3 0-0.8 10 ^3/uL Basophils # (Auto) 0 0-0.2 10 ^3/uL Nucleated Red Blood Cells 0.2 % Lactic Acid Level 1.2 0.4-2.0 mmol/L Lipase 29 12-53 U/L Assessment IMP: 1) ESRD on dialysis 2) intractable nausea and vomiting 3) anemia secondary to CKD V 4) history of depression REC: - tentatively for dialysis today, metabolic and volume status currently acceptable. - from a Nephrology perspective clinically stable for discharge. - discussed with Mr. Johnson Thank you for the consultation. Plan discussed with: Patient KEMI MAYEN MD May 31, 2025 10:05
[2025-05-31] MEDS: ACETAMINOPHEN 325 MG TAB PO PRN (10:33)
[2025-05-31] MEDS: PANTOPRAZOLE 40 MG TAB PO SCH (10:33)
--- NOTE | 2025-05-31 13:45 | DVHPN2 ---
Subjective Patient continues to report having generalized weakness. Reviewed: Care Plan, H&P, Labs, Medications Changes from previous H/P or p: No Changes General: Per HPI Eyes: No Pain, No Vision change, No Conjunctivae inflammation, No Eyelid inflammation, No Other, No Redness ENT: No Ear pain, No Ear discharge, No Nose pain, No Nose discharge, No Nose congestion, No Mouth pain, No Mouth swelling, No Throat pain, No Throat swelling, No Other Cardiovascular: No Chest Pain, No Palpitations, No Orthopnea, No Paroxysmal Noc. Dyspnea, No Edema, No Lt Headedness, No Other Respiratory: No Cough, No Dry, No Shortness of breath, No SOB with excertion, No Wheezing, No Hemoptysis, No Pleuritic Pain, No Sputum, No Other Gastrointestinal: Nausea, Vomiting, Abdominal Pain; No Diarrhea, No Constipation, No Melena, No Hematochezia, No Other Genitourinary: No Dysuria, No Frequency, No Incontinence, No Hematuria, No Retention, No Other Musculoskeletal: No other, No neck pain, No shoulder pain, No arm pain, No back pain, No hand pain, No leg pain, No foot pain Skin: No Rash, No Lesions, No Jaundice, No Bruising, No Other Objective Vitals Vital Signs Date Time Temp Pulse Resp B/P (MAP) Pulse Ox O2 Delivery O2 Flow Rate FiO2 05/31/25 10:00 111/85 05/31/25 10:00 89 05/31/25 09:30 100.1 20 91 100.1 05/31/25 08:20 Room Air* 0 21 Intake/Output Intake and Output 05/31/25 07:00 Intake Total 2300 ml Balance 2300 ml Intake Oral 300 ml IV Total 2000 ml # Voids 1 General Appearance: Alert, Oriented X3, Cooperative, mild distress HEENT: Atraumatic, PERRLA Lungs: Clear to auscultation, Normal air movement Cardiovascular: Normal S1, Normal S2 Abdomen: Normal bowel sounds, Soft, No tenderness, No hepatospenomegaly, No masses Genitourinary: No Apparent Abnormalities Musculoskeletal: Normal sensory function, Normal motor function Skin: Dry, Intact Psych/Mental Status: Mental status NL, Mood NL Medications Current Medications Medications Dose Ordered Sig/Leda Route Start Time Stop Time Status Last Admin Dose Admin Acetaminophen/ Hydrocodone Bitart 1 tab Q4HP PRN PO 05/30/25 14:45 05/30/25 18:01 1 TAB Ondansetron HCl 4 mg Q4HP PRN IV 05/30/25 14:45 Docusate Sodium 100 mg BIDPRN PRN PO 05/30/25 14:45 Acetaminophen 650 mg Q6HP PRN PO 05/30/25 14:45 05/31/25 10:33 650 MG Amlodipine Besylate 5 mg DAILY PO 05/31/25 10:00 Calcium Acetate 667 mg TID PO 05/30/25 22:00 05/31/25 05:49 667 MG Gabapentin 400 mg HS PO 05/30/25 22:00 05/30/25 21:17 400 MG Pantoprazole Sodium 40 mg DAILY PO 05/31/25 10:00 05/31/25 10:33 40 MG Patient Own Medication 1 tab BID PO 05/30/25 22:00 UNV Patient Own Medication 1 tab DAILY PO 05/31/25 10:00 UNV Patient Own Medication 3 tab HS PO 05/30/25 22:00 UNV Carvedilol 25 mg BID PO 05/30/25 22:00 05/30/25 21:16 25 MG Lisinopril 40 mg DAILY PO 05/31/25 10:00 Trazodone HCl 300 mg HS PO 05/30/25 22:00 05/30/25 21:17 300 MG Metoclopramide HCl 10 mg Q6HPRN PRN IV 05/30/25 18:00 Laboratory Results Laboratory Tests 05/31/25 06:00 Chemistry Test 05/31/25 06:00 Albumin 4.0 g/dL (3.2-4.8) Calcium Level 7.5 mg/dL (8.7-10.4) L Total Protein 6.2 g/dL (5.7-8.2) LFT Test 05/31/25 06:00 Alanine Aminotransferase (ALT) 16 U/L (7-40) Alkaline Phosphatase 59 U/L (46-116) Aspartate Amino Transferase (AST) 19 U/L (13-40) Total Bilirubin 0.3 mg/dL (0.2-1.0) Labs and/or images reviewed: Labs reviewed by me, Image(s) reviewed by me Assessment/Plan Assessment/Plan Impression: -abdominal pain -probable sepsis -ESRD with hemodialysis -macrocytic anemia -accelerated hypertension -COPD -dyslipidemia Plan: -stool in blood culture -CT of the abdomen and pelvis -start antibiotic therapy with Zosyn -nephrology consultation: Plans for renal replacement therapy -bronchodilators p.r.n. -antihypertensives -repeat labs in a.m. Total time spent with patient discussing and formulating plan of care: 35 minutes. This medical document was created using an electronic medical record system with [employer] dictation system. Although this document has been carefully reviewed, there may still be some phonetic and typographical errors. These areas are purely typographical due to imperfections of the software programs, and do not reflect any compromise in the patient's medical care. 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 NP Procedure Category Date Status Time Blood Culture CLEMENTINA 05/31/25 Verified 13:37 Erythrocyte LAB 05/31/25 Verified Sedimentation Rate 13:37 C-Reactive Protein LAB 05/31/25 Verified 13:37 Ct Ab Pel Wo Con-No CT 05/31/25 Verified Oral Or Iv 13:37 Zosyn Extended PHA 05/31/25 Verified Infusion 22:00 Comprehensive LAB 06/01/25 Verified Metabolic Panel 04:00 Complete Blood Count LAB 06/01/25 Verified 04:00 Date of Service: May 31, 2025 Billing Provider: TAQUERIA STEELE NP Common Visit Codes: [id number] INP/OBS CARE(HIGH) TAQUERIA STEELE NP May 31, 2025 13:45
--- NOTE | 2025-05-31 15:11 | DVH ---
EXAM: CT CT AB PEL WO CON-NO ORAL OR IV HISTORY: sepsis, abdominal pain, diarrhea COMPARISON STUDY: None TECHNIQUE: Multidetector CT of the abdomen and pelvis was performed from lung bases to pubic symphysis. Imaging was performed without IV contrast. Axial, coronal, and sagittal multiplanar reformats were obtained from the axial data set by the technologist. RADIATION DOSE: CTDI vol 13.9 mGy. DLP 849.5 mGy.cm FINDINGS: Limited evaluation of the solid organs in the absence of IV contrast. Lungs: Ground-glass and punctate nodular opacities are seen throughout the lung bases. 7 mm left lower lobe nodule. Emphysema. Liver: Mild hepatomegaly. Spleen: Mild splenomegaly. Pancreas: Unremarkable. Gallbladder: Unremarkable. Adrenals: Unremarkable Kidneys: Bilateral renal cysts. No hydronephrosis. Pelvic Viscera: Unremarkable. Vasculature: Atherosclerotic aortoiliac calcification. Retroperitoneum: Unremarkable. Bowel: Colonic diverticulosis without CT evidence of diverticulitis. No bowel obstruction. No CT evidence of appendicitis. Musculoskeletal: Unremarkable. Soft tissues: Unremarkable IMPRESSION: 1. No acute abdominopelvic abnormality. 2. Nonspecific lower lobe opacities may reflect infectious / inflammatory process in the appropriate clinical setting. 3. 7 mm left lower lobe pulmonary nodule. Comparison with any prior outside cross-sectional imaging of the chest may be helpful in assessing acuity and interval change. A nonemergent dedicated CT chest follow-up is suggested in further evaluation. 4. Incidental findings as detailed.
[2025-05-31] MEDS ORDERED: VANCOMYCIN PER PHARMACY 0 MG IV SCH (15:15)
[2025-05-31] MEDS: VANCOMYCIN 1.5GM/250ML 250 ML IV ONE (16:15)
[2025-05-31] MEDS: SODIUM CHL 0.9% 1000 ML BAG XX ONE (19:23)
[2025-05-31] MEDS: EPOETIN ALFA-EPBX 10,000 UNIT/1ML VIAL IV ONE (21:23)
[2025-05-31] MEDS: PIPERACILLIN-TAZOB 2.25GM 50 ML IV SCH (22:26)
[2025-06-01] VITALS (14 sets, daily range): BP systolic 111–145; BP diastolic 70–92; PULSE 83–100; RESP 16–19; TEMP 98–100.8; O2SAT 90–100
[2025-06-01 05:53] LABS: Hematocrit 22.7 % (41.0-53.0); Hemoglobin 7.3 g/dL (13.5-17.5); Mean Corpuscular Hemoglobin 34.9 pg (28.0-32.0); Mean Corpuscular Volume 107.6 fL (80.0-100.0); Nucleated Red Blood Cells % 0.0 %
[2025-06-01 06:17] LABS: Alanine Aminotransferase 26 U/L (7-40); Albumin 3.5 g/dL (3.2-4.8); Alkaline Phosphatase 75 U/L (46-116); Anion Gap 16 (5-15); Bilirubin, Total 0.4 mg/dL (0.2-1.0); Carbon Dioxide 25 mmol/L (20-31); Chloride 101 mmol/L (98-107); Glucose 93 mg/dL (74-106); Potassium 4.3 mmol/L (3.5-5.1); Sodium 142 mmol/L (136-145)
[2025-06-01 06:27] LABS: Calcium 7.3 mg/dL (8.7-10.4); Total Protein 5.2 g/dL (5.7-8.2)
[2025-06-01 06:32] LABS: BUN/Creatinine Ratio 6.1 (10.0-20.0)
[2025-06-01 06:36] LABS: Blood Urea Nitrogen 52 mg/dL (9-23)
[2025-06-01] MEDS: ALBUTEROL SULF 2.5 MG/0.5ML(0.5%) NEB SOLN NEB PRN (08:36)
[2025-06-01] MEDS: IPRATROPIUM BROM 0.5 MG/2.5ML INH SOL NEB PRN (08:36)
[2025-06-01] MEDS: BUDESONIDE (INHALATION) 0.5 MG/2 ML NEB NEB SCH (08:36)
[2025-06-01] MEDS: CEFEPIME 1GM/50ML 50 ML IV SCH (09:49)
[2025-06-01 10:29] LABS: Hepatitis B Surface Antigen Negative (Negative)
--- NOTE | 2025-06-01 10:53 | DVHPN2 ---
Subjective Patient had shortness of breath this a.m.. Reviewed: Care Plan, H&P, Labs, Medications Changes from previous H/P or p: No Changes General: Per HPI Eyes: No Pain, No Vision change, No Conjunctivae inflammation, No Eyelid inflammation, No Other, No Redness ENT: No Ear pain, No Ear discharge, No Nose pain, No Nose discharge, No Nose congestion, No Mouth pain, No Mouth swelling, No Throat pain, No Throat swelling, No Other Cardiovascular: No Chest Pain, No Palpitations, No Orthopnea, No Paroxysmal Noc. Dyspnea, No Edema, No Lt Headedness, No Other Respiratory: No Cough, No Dry, No Shortness of breath, No SOB with excertion, No Wheezing, No Hemoptysis, No Pleuritic Pain, No Sputum, No Other Gastrointestinal: Nausea, Vomiting, Abdominal Pain; No Diarrhea, No Constipation, No Melena, No Hematochezia, No Other Genitourinary: No Dysuria, No Frequency, No Incontinence, No Hematuria, No Retention, No Other Musculoskeletal: No other, No neck pain, No shoulder pain, No arm pain, No back pain, No hand pain, No leg pain, No foot pain Skin: No Rash, No Lesions, No Jaundice, No Bruising, No Other Objective Vitals Vital Signs Date Time Temp Pulse Resp B/P (MAP) Pulse Ox O2 Delivery O2 Flow Rate FiO2 06/01/25 10:02 136/84 06/01/25 09:50 74 06/01/25 09:00 99.7 19 97 99.7 06/01/25 08:36 Nasal Cannula* 5 40 Intake/Output Intake and Output 06/01/25 07:00 Intake Total 600 ml Balance 600 ml Intake Oral 300 ml IV Total 300 ml # Voids 10 # Bowel Movements 4 General Appearance: Alert, Oriented X3, Cooperative, mild distress HEENT: Atraumatic, PERRLA Lungs: Clear to auscultation, Normal air movement Cardiovascular: Normal S1, Normal S2 Abdomen: Normal bowel sounds, Soft, No tenderness, No hepatospenomegaly, No masses Genitourinary: No Apparent Abnormalities Musculoskeletal: Normal sensory function, Normal motor function Skin: Dry, Intact Psych/Mental Status: Mental status NL, Mood NL Medications Current Medications Medications Dose Ordered Sig/Leda Route Start Time Stop Time Status Last Admin Dose Admin Acetaminophen/ Hydrocodone Bitart 1 tab Q4HP PRN PO 05/30/25 14:45 05/30/25 18:01 1 TAB Ondansetron HCl 4 mg Q4HP PRN IV 05/30/25 14:45 Docusate Sodium 100 mg BIDPRN PRN PO 05/30/25 14:45 Acetaminophen 650 mg Q6HP PRN PO 05/30/25 14:45 05/31/25 22:26 650 MG Amlodipine Besylate 5 mg DAILY PO 05/31/25 10:00 06/01/25 10:00 5 MG Calcium Acetate 667 mg TID PO 05/30/25 22:00 05/31/25 22:27 667 MG Gabapentin 400 mg HS PO 05/30/25 22:00 05/31/25 22:28 400 MG Pantoprazole Sodium 40 mg DAILY PO 05/31/25 10:00 06/01/25 09:49 40 MG Patient Own Medication 1 tab BID PO 05/30/25 22:00 UNV Patient Own Medication 1 tab DAILY PO 05/31/25 10:00 UNV Patient Own Medication 3 tab HS PO 05/30/25 22:00 UNV Carvedilol 25 mg BID PO 05/30/25 22:00 06/01/25 09:50 25 MG Lisinopril 40 mg DAILY PO 05/31/25 10:00 06/01/25 10:02 40 MG Trazodone HCl 300 mg HS PO 05/30/25 22:00 05/31/25 22:29 300 MG Metoclopramide HCl 10 mg Q6HPRN PRN IV 05/30/25 18:00 Vancomycin HCl 0 ml @ 0 mls/hr PER PHARMACY IV 05/31/25 15:15 Cefepime HCl 50 ml @ 12.5 mls/hr HS IV 06/01/25 10:00 06/01/25 09:49 12.5 MLS/HR Budesonide 0.5 mg BID NEB 06/01/25 10:00 06/01/25 08:36 0.5 MG Albuterol 2.5 mg Q6HWA NEB 06/01/25 12:00 Albuterol 2.5 mg Q3HPRN PRN NEB 06/01/25 08:15 06/01/25 08:36 2.5 MG Ipratropium [place] 0.5 mg Q6HWA NEB 06/01/25 12:00 Ipratropium [place] 0.5 mg Q3HPRN PRN NEB 06/01/25 08:15 06/01/25 08:36 0.5 MG Laboratory Results Laboratory Tests 06/01/25 05:20 Chemistry Test 06/01/25 05:20 Albumin 3.5 g/dL (3.2-4.8) Calcium Level 7.3 mg/dL (8.7-10.4) L Total Protein 5.2 g/dL (5.7-8.2) L LFT Test 06/01/25 05:20 Alanine Aminotransferase (ALT) 26 U/L (7-40) Alkaline Phosphatase 75 U/L (46-116) Aspartate Amino Transferase (AST) 29 U/L (13-40) Total Bilirubin 0.4 mg/dL (0.2-1.0) Labs and/or images reviewed: Labs reviewed by me, Image(s) reviewed by me Assessment/Plan Assessment/Plan Impression: -abdominal pain -probable sepsis -ESRD with hemodialysis -macrocytic anemia -accelerated hypertension -COPD -dyslipidemia Plan: Events: Patient has CT scan reveals no acute abdominal pathology. Does express bibasilar pneumonia . ESR and CRP elevated -change antibiotic therapy to vancomycin and cefepime -q.6 hour bronchodilators with DuoNebs, add Pulmicort -nephrology consultation: Plans for renal replacement therapy -bronchodilators p.r.n. -antihypertensives -repeat labs and chest x-ray in a.m. Total time spent with patient discussing and formulating plan of care: 35 minutes. This medical document was created using an electronic medical record system with [employer] dictation system. Although this document has been carefully reviewed, there may still be some phonetic and typographical errors. These areas are purely typographical due to imperfections of the software programs, and do not reflect any compromise in the patient's medical care. 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 Procedure Category Date Status Time Blood Culture [place] 05/31/25 In Process 13:37 Ct Ab Pel Wo Con-No CT 05/31/25 Resulted Oral Or Iv 13:37 Vancomycin Per PHA 05/31/25 In Process Pharmacy 15:15 Vancomycin Per DIANNA 05/31/25 In Process Pharmacy Protoc 15:52 Cefepime 1gm/50ml PHA 06/01/25 In Process (Maxipime 1gm/50ml) 10:00 Budesonide PHA 06/01/25 In Process (Inhalation) 10:00 Albuterol Medneb PHA 06/01/25 In Process (Ventolin Medneb) 12:00 Albuterol Medneb PHA 06/01/25 In Process (Ventolin Medneb) 08:15 Ipratropium Medneb PHA 06/01/25 In Process (Atrovent Medneb) 12:00 Ipratropium Medneb PHA 06/01/25 In Process (Atrovent Medneb) 08:15 Renal DIET 06/01/25 Transmitted Standard(2gna,3gk,Lopho) Breakfast Maintain Fluid DIANNA 06/01/25 In Process Restrictions 08:06 Basic Metabolic Panel LAB 06/02/25 Verified 04:00 Chest Portable XY 06/02/25 Logged 04:00 Rapid Influenza A&B LAB 06/01/25 Logged 08:06 Covid19 Antigen [place] LAB 06/01/25 Logged Date of Service: Jun 01, 2025 Billing Provider: TAQUERIA STEELE NP Common Visit Codes: [id number] INP/OBS CARE(HIGH) TAQUERIA STEELE NP Jun 01, 2025 10:53
[2025-06-01 10:56] LABS: Hepatitis C Antibody Negative (Negative)
[2025-06-01] MEDS: ALBUTEROL SULF 2.5 MG/0.5ML(0.5%) NEB SOLN NEB SCH (11:32)
[2025-06-01] MEDS: IPRATROPIUM BROM 0.5 MG/2.5ML INH SOL NEB SCH (11:32)
[2025-06-01 17:56] LABS: COVID19 ANTIGEN SOFIA FIA NEGATIVE (NEGATIVE)
--- NOTE | 2025-06-01 18:18 | DVHPN2 ---
Progress Note - Dictate Date Seen: Jun 01, 2025 Medical Necessity Reason Pt with a Central, PICC or Fol: No Subjective Resting comfortably this evening vital signs Vital Sign Date Time Temp Pulse Resp B/P (MAP) Pulse Ox O2 Delivery O2 Flow Rate FiO2 06/01/25 17:10 99.5 94 18 111/82 (92) 93 99.5 06/01/25 16:33 2.0 06/01/25 08:36 Nasal Cannula* 40 Total Intake and Output 05/31/25 05/31/25 06/01/25 15:00 23:00 07:00 Intake Total 250 ml 350 ml Balance 250 ml 350 ml medications Current Medications Medications Dose Ordered Sig/Leda Route Start Time Stop Time Status Last Admin Dose Admin Acetaminophen/ Hydrocodone Bitart 1 tab Q4HP PRN PO 05/30/25 14:45 05/30/25 18:01 1 TAB Ondansetron HCl 4 mg Q4HP PRN IV 05/30/25 14:45 Docusate Sodium 100 mg BIDPRN PRN PO 05/30/25 14:45 Acetaminophen 650 mg Q6HP PRN PO 05/30/25 14:45 06/01/25 16:15 650 MG Amlodipine Besylate 5 mg DAILY PO 05/31/25 10:00 06/01/25 10:00 5 MG Calcium Acetate 667 mg TID PO 05/30/25 22:00 06/01/25 15:15 667 MG Gabapentin 400 mg HS PO 05/30/25 22:00 05/31/25 22:28 400 MG Pantoprazole Sodium 40 mg DAILY PO 05/31/25 10:00 06/01/25 09:49 40 MG Patient Own Medication 1 tab BID PO 05/30/25 22:00 UNV Patient Own Medication 1 tab DAILY PO 05/31/25 10:00 UNV Patient Own Medication 3 tab HS PO 05/30/25 22:00 UNV Carvedilol 25 mg BID PO 05/30/25 22:00 06/01/25 09:50 25 MG Lisinopril 40 mg DAILY PO 05/31/25 10:00 06/01/25 10:02 40 MG Trazodone HCl 300 mg HS PO 05/30/25 22:00 05/31/25 22:29 300 MG Metoclopramide HCl 10 mg Q6HPRN PRN IV 05/30/25 18:00 Vancomycin HCl 0 ml @ 0 mls/hr PER PHARMACY IV 05/31/25 15:15 Cefepime HCl 50 ml @ 12.5 mls/hr HS IV 06/01/25 10:00 06/01/25 09:49 12.5 MLS/HR Budesonide 0.5 mg BID NEB 06/01/25 10:00 06/01/25 08:36 0.5 MG Albuterol 2.5 mg Q6HWA NEB 06/01/25 12:00 Albuterol 2.5 mg Q3HPRN PRN NEB 06/01/25 08:15 06/01/25 08:36 2.5 MG Ipratropium [place] 0.5 mg Q6HWA NEB 06/01/25 12:00 Ipratropium [place] 0.5 mg Q3HPRN PRN NEB 06/01/25 08:15 06/01/25 08:36 0.5 MG objective Gen: nad heent: nc/at, mmm lungs: cta anteriorly cvs: no rub abd: soft, bowel sounds audible ext: no edema skin: no rash neuro: alert and oriented laboratory and microbiology Laboratory Tests 06/01/25 05:20 Test 06/01/25 05:20 Range/Units Serum Glucose 93 74-106 mg/dL Assessment/Plan IMP: 1) ESRD on dialysis 2) intractable nausea and vomiting 3) anemia secondary to CKD V 4) history of depression 5) Sepsis 2/2 possible pneurmonia 6) hypertension - improved REC: - tolerated dialysis 05/31 - we will continue to evaluate daily for dialysis needs Plan discussed with: Other KEMI MAYEN MD Jun 01, 2025 18:18
[2025-06-02] VITALS (19 sets, daily range): BP systolic 122–144; BP diastolic 81–98; PULSE 66–98; RESP 16–92; TEMP 98.1–100.4; O2SAT 92–100
[2025-06-02 06:02] LABS: Anion Gap 16 (5-15); Carbon Dioxide 22 mmol/L (20-31); Chloride 102 mmol/L (98-107); Potassium 4.2 mmol/L (3.5-5.1); Sodium 140 mmol/L (136-145)
[2025-06-02 06:08] LABS: BUN/Creatinine Ratio 6.9 (10.0-20.0)
[2025-06-02 06:16] LABS: Blood Urea Nitrogen 66 mg/dL (9-23); Calcium 7.0 mg/dL (8.7-10.4); Glucose 115 mg/dL (74-106)
--- NOTE | 2025-06-02 07:13 | DVH ---
CHEST RADIOGRAPH INDICATION: pna TECHNIQUE: Single frontal view of the chest was obtained COMPARISON: XY CHEST PORTABLE on DOS: 05/30/25. FINDINGS: Lines and Tubes: Right central venous catheter with its tip terminating in the superior cavoatrial junction. Lungs: Bilateral interstitial prominence, increased since prior study. Pleura: No effusion. No pneumothorax. Cardiomediastinal contours: Cardiomegaly. Bones: No acute osseous abnormality. IMPRESSION: 1. Cardiomegaly and bilateral interstitial prominence which may reflect worsening edema. Pneumonia is not excluded.
[2025-06-02 08:21] LABS: Hematocrit 20.9 % (41.0-53.0); Mean Corpuscular Hemoglobin 33.8 pg (28.0-32.0); Mean Corpuscular Volume 103.5 fL (80.0-100.0); Nucleated Red Blood Cells % 0.1 %
[2025-06-02 08:35] LABS: Hemoglobin 6.8 g/dL (13.5-17.5)
--- NOTE | 2025-06-02 10:44 | DVHPN2 ---
Subjective Patient reporting generalized weakness. Reviewed: Care Plan, H&P, Labs, Medications Changes from previous H/P or p: No Changes General: Per HPI Eyes: No Pain, No Vision change, No Conjunctivae inflammation, No Eyelid inflammation, No Other, No Redness ENT: No Ear pain, No Ear discharge, No Nose pain, No Nose discharge, No Nose congestion, No Mouth pain, No Mouth swelling, No Throat pain, No Throat swelling, No Other Cardiovascular: No Chest Pain, No Palpitations, No Orthopnea, No Paroxysmal Noc. Dyspnea, No Edema, No Lt Headedness, No Other Respiratory: No Cough, No Dry, No Shortness of breath, No SOB with excertion, No Wheezing, No Hemoptysis, No Pleuritic Pain, No Sputum, No Other Gastrointestinal: Nausea, Vomiting, Abdominal Pain; No Diarrhea, No Constipation, No Melena, No Hematochezia, No Other Genitourinary: No Dysuria, No Frequency, No Incontinence, No Hematuria, No Retention, No Other Musculoskeletal: No other, No neck pain, No shoulder pain, No arm pain, No back pain, No hand pain, No leg pain, No foot pain Skin: No Rash, No Lesions, No Jaundice, No Bruising, No Other Objective Vitals Vital Signs Date Time Temp Pulse Resp B/P (MAP) Pulse Ox O2 Delivery O2 Flow Rate FiO2 06/02/25 09:12 81 129/86 06/02/25 09:08 98.4 18 93 98.4 06/02/25 08:00 Nasal Cannula* 2 28 Intake/Output Intake and Output 06/02/25 07:00 Intake Total 1539 ml Balance 1539 ml Intake Oral 1400 ml IV Total 139 ml # Voids 4 General Appearance: Alert, Oriented X3, Cooperative, mild distress HEENT: Atraumatic, PERRLA Lungs: Clear to auscultation, Normal air movement Cardiovascular: Normal S1, Normal S2 Abdomen: Normal bowel sounds, Soft, No tenderness, No hepatospenomegaly, No masses Genitourinary: No Apparent Abnormalities Musculoskeletal: Normal sensory function, Normal motor function Skin: Dry, Intact Psych/Mental Status: Mental status NL, Mood NL Medications Current Medications Medications Dose Ordered Sig/Leda Route Start Time Stop Time Status Last Admin Dose Admin Acetaminophen/ Hydrocodone Bitart 1 tab Q4HP PRN PO 05/30/25 14:45 05/30/25 18:01 1 TAB Ondansetron HCl 4 mg Q4HP PRN IV 05/30/25 14:45 Docusate Sodium 100 mg BIDPRN PRN PO 05/30/25 14:45 Acetaminophen 650 mg Q6HP PRN PO 05/30/25 14:45 06/02/25 02:26 650 MG Amlodipine Besylate 5 mg DAILY PO 05/31/25 10:00 06/01/25 10:00 5 MG Calcium Acetate 667 mg TID PO 05/30/25 22:00 06/01/25 21:51 667 MG Gabapentin 400 mg HS PO 05/30/25 22:00 06/01/25 21:51 400 MG Pantoprazole Sodium 40 mg DAILY PO 05/31/25 10:00 06/02/25 09:15 40 MG Patient Own Medication 1 tab BID PO 05/30/25 22:00 UNV Patient Own Medication 1 tab DAILY PO 05/31/25 10:00 UNV Patient Own Medication 3 tab HS PO 05/30/25 22:00 UNV Carvedilol 25 mg BID PO 05/30/25 22:00 06/01/25 21:52 25 MG Lisinopril 40 mg DAILY PO 05/31/25 10:00 06/01/25 10:02 40 MG Trazodone HCl 300 mg HS PO 05/30/25 22:00 06/01/25 21:51 300 MG Metoclopramide HCl 10 mg Q6HPRN PRN IV 05/30/25 18:00 Vancomycin HCl 0 ml @ 0 mls/hr PER PHARMACY IV 05/31/25 15:15 Cefepime HCl 50 ml @ 12.5 mls/hr HS IV 06/01/25 10:00 06/01/25 21:52 12.5 MLS/HR Budesonide 0.5 mg BID NEB 06/01/25 10:00 06/02/25 07:05 0.5 MG Albuterol 2.5 mg Q6HWA NEB 06/01/25 12:00 06/02/25 07:05 2.5 MG Albuterol 2.5 mg Q3HPRN PRN NEB 06/01/25 08:15 06/01/25 08:36 2.5 MG Ipratropium [place] 0.5 mg Q6HWA NEB 06/01/25 12:00 06/02/25 07:05 0.5 MG Ipratropium [place] 0.5 mg Q3HPRN PRN [facility] [place] 06/01/25 08:15 06/01/25 08:36 0.5 MG Laboratory Results Laboratory Tests 06/02/25 05:00 06/02/25 07:34 Chemistry Test 06/02/25 05:00 Calcium Level 7.0 mg/dL (8.7-10.4) L Microbiology Microbiology Date/Time Source Procedure Growth Status 05/31/25 14:10 Blood Blood Culture - Preliminary NO GROWTH AFTER 24 HOURS OF INCUBATION. Resulted Labs and/or images reviewed: Labs reviewed by me, Image(s) reviewed by me Assessment/Plan Assessment/Plan Impression: -abdominal pain -probable sepsis -ESRD with hemodialysis -macrocytic anemia -accelerated hypertension -COPD -dyslipidemia -history of CA Plan: Events: Hemoglobin 6.8. Discussed plan of care nephrology. PRBC transfusion today. HD tomorrow -IV diuresis -change antibiotic therapy to vancomycin and cefepime -q.6 hour bronchodilators with DuoNebs, add Pulmicort -nephrology consultation: Plans for renal replacement therapy -bronchodilators p.r.n. -antihypertensives -repeat labs and chest x-ray in a.m. Total time spent with patient discussing and formulating plan of care: 35 minutes. This medical document was created using an electronic medical record system with [employer] dictation system. Although this document has been carefully reviewed, there may still be some phonetic and typographical errors. These areas are purely typographical due to imperfections of the software programs, and do not reflect any compromise in the patient's medical care. 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
[2025-06-02] MEDS: BUMETANIDE 1mg/4ml VIAL (0.25mg/ml) IV ONE (10:45)
--- NOTE | 2025-06-02 14:58 | DVHPN2 ---
Progress Note - Dictate Date Seen: Jun 02, 2025 Medical Necessity Reason Pt with a Central, PICC or Fol: No Subjective Patient states he feels weak today vital signs Vital Sign Date Time Temp Pulse Resp B/P (MAP) Pulse Ox O2 Delivery O2 Flow Rate FiO2 06/02/25 13:22 98.9 82 17 134/92 98.9 06/02/25 13:00 94 06/02/25 11:50 Nasal Cannula* 2 28 Total Intake and Output 06/01/25 06/01/25 06/02/25 15:00 23:00 07:00 Intake Total 89 ml 900 ml 550 ml Balance 89 ml 900 ml 550 ml medications Current Medications Medications Dose Ordered Sig/Leda Route Start Time Stop Time Status Last Admin Dose Admin Acetaminophen/ Hydrocodone Bitart 1 tab Q4HP PRN PO 05/30/25 14:45 05/30/25 18:01 1 TAB Ondansetron HCl 4 mg Q4HP PRN IV 05/30/25 14:45 Docusate Sodium 100 mg BIDPRN PRN PO 05/30/25 14:45 Acetaminophen 650 mg Q6HP PRN PO 05/30/25 14:45 06/02/25 12:48 650 MG Amlodipine Besylate 5 mg DAILY PO 05/31/25 10:00 06/01/25 10:00 5 MG Calcium Acetate 667 mg TID PO 05/30/25 22:00 06/02/25 13:38 667 MG Gabapentin 400 mg HS PO 05/30/25 22:00 06/01/25 21:51 400 MG Pantoprazole Sodium 40 mg DAILY PO 05/31/25 10:00 06/02/25 09:15 40 MG Patient Own Medication 1 tab BID PO 05/30/25 22:00 UNV Patient Own Medication 1 tab DAILY PO 05/31/25 10:00 UNV Patient Own Medication 3 tab HS PO 05/30/25 22:00 UNV Carvedilol 25 mg BID PO 05/30/25 22:00 06/01/25 21:52 25 MG Lisinopril 40 mg DAILY PO 05/31/25 10:00 06/01/25 10:02 40 MG Trazodone HCl 300 mg HS PO 05/30/25 22:00 06/01/25 21:51 300 MG Metoclopramide HCl 10 mg Q6HPRN PRN IV 12/8/25 18:00 Vancomycin HCl 0 ml @ 0 mls/hr PER PHARMACY IV 05/31/25 15:15 Cefepime HCl 50 ml @ 12.5 mls/hr HS IV 06/01/25 10:00 06/01/25 21:52 12.5 MLS/HR Budesonide 0.5 mg BID NEB 06/01/25 10:00 06/02/25 07:05 0.5 MG Albuterol 2.5 mg Q6HWA NEB 06/01/25 12:00 06/02/25 11:50 2.5 MG Albuterol 2.5 mg Q3HPRN PRN NEB 06/01/25 08:15 06/01/25 08:36 2.5 MG Ipratropium [place] 0.5 mg Q6HWA NEB 06/01/25 12:00 06/02/25 11:50 0.5 MG Ipratropium [place] 0.5 mg Q3HPRN PRN NEB 06/01/25 08:15 06/01/25 08:36 0.5 MG objective Gen: nad heent: nc/at, mmm lungs: cta anteriorly cvs: no rub abd: soft, bowel sounds audible ext: no edema skin: no rash neuro: alert and oriented laboratory and microbiology Laboratory Tests 06/02/25 07:34 06/02/25 05:00 Test 06/02/25 05:00 Range/Units Serum Glucose 115 H 74-106 mg/dL Assessment/Plan IMP: 1) ESRD on dialysis 2) intractable nausea and vomiting 3) anemia secondary to CKD V 4) history of depression 5) Sepsis 2/2 possible pneurmonia 6) hypertension - improved REC: - okay to received packed RBC transfusion today from a metabolic and volume perspective. - I discussed with patient regarding his hemodialysis treatment that we will be tomorrow June 03. - he expressed understanding. Plan discussed with: Patient KEMI MAYEN MD Jun 02, 2025 14:58
[2025-06-02] MEDS ORDERED: VANCOMYCIN 500mg/100mL 100 ML IV ONE (16:00)
[2025-06-02] MEDS ORDERED: hydrALAZINE HCL 20 MG/ML VL IV PRN (17:30)
[2025-06-02] MEDS: VANCOMYCIN 500mg/100mL 100 ML IV ONE (20:10)
[2025-06-03] VITALS (13 sets, daily range): BP systolic 122–142; BP diastolic 79–95; PULSE 76–92; RESP 16–20; TEMP 98–100.8; O2SAT 85–100
[2025-06-03 06:42] LABS: Anion Gap 18 (5-15); Carbon Dioxide 21 mmol/L (20-31); Chloride 101 mmol/L (98-107); Potassium 4.5 mmol/L (3.5-5.1); Sodium 140 mmol/L (136-145)
[2025-06-03 06:48] LABS: BUN/Creatinine Ratio 6.9 (10.0-20.0); Glucose 94 mg/dL (74-106)
[2025-06-03 06:57] LABS: Blood Urea Nitrogen 74 mg/dL (9-23); Calcium 7.2 mg/dL (8.7-10.4)
[2025-06-03 07:03] LABS: Hemoglobin 7.4 g/dL (13.5-17.5)
[2025-06-03 07:05] LABS: Hematocrit 22.2 % (41.0-53.0); Mean Corpuscular Hemoglobin 33.3 pg (28.0-32.0); Mean Corpuscular Volume 99.4 fL (80.0-100.0); Nucleated Red Blood Cells % 0.1 %
[2025-06-03] MEDS: SODIUM CHL 0.9% 1000 ML BAG XX ONE (12:01)
--- NOTE | 2025-06-03 13:34 | DVHPN2 ---
Subjective Patient reporting generalized weakness. Reviewed: Care Plan, H&P, Labs, Medications Changes from previous H/P or p: No Changes General: Per HPI Eyes: No Pain, No Vision change, No Conjunctivae inflammation, No Eyelid inflammation, No Other, No Redness ENT: No Ear pain, No Ear discharge, No Nose pain, No Nose discharge, No Nose congestion, No Mouth pain, No Mouth swelling, No Throat pain, No Throat swelling, No Other Cardiovascular: No Chest Pain, No Palpitations, No Orthopnea, No Paroxysmal Noc. Dyspnea, No Edema, No Lt Headedness, No Other Respiratory: No Cough, No Dry, No Shortness of breath, No SOB with excertion, No Wheezing, No Hemoptysis, No Pleuritic Pain, No Sputum, No Other Gastrointestinal: Nausea, Vomiting, Abdominal Pain; No Diarrhea, No Constipation, No Melena, No Hematochezia, No Other Genitourinary: No Dysuria, No Frequency, No Incontinence, No Hematuria, No Retention, No Other Musculoskeletal: No other, No neck pain, No shoulder pain, No arm pain, No back pain, No hand pain, No leg pain, No foot pain Skin: No Rash, No Lesions, No Jaundice, No Bruising, No Other Objective Vitals Vital Signs Date Time Temp Pulse Resp B/P (MAP) Pulse Ox O2 Delivery O2 Flow Rate FiO2 06/03/25 12:14 138/90 06/03/25 12:12 77 06/03/25 12:06 18 100 06/03/25 12:00 Nasal Cannula* 2 28 06/03/25 05:00 98.0 98.0 Intake/Output Intake and Output 06/03/25 07:00 Intake Total 840 ml Balance 840 ml Intake Oral 240 ml Blood Product 300 ml Packed Cells 300 ml # Voids 1 General Appearance: Alert, Oriented X3, Cooperative, mild distress HEENT: Atraumatic, PERRLA Lungs: Clear to auscultation, Normal air movement Cardiovascular: Normal S1, Normal S2 Abdomen: Normal bowel sounds, Soft, No tenderness, No hepatospenomegaly, No masses Genitourinary: No Apparent Abnormalities Musculoskeletal: Normal sensory function, Normal motor function Skin: Dry, Intact Psych/Mental Status: Mental status NL, Mood NL Medications Current Medications Medications Dose Ordered Sig/Leda Route Start Time Stop Time Status Last Admin Dose Admin Acetaminophen/ Hydrocodone Bitart 1 tab Q4HP PRN PO 05/30/25 14:45 06/03/25 07:58 1 TAB Ondansetron HCl 4 mg Q4HP PRN IV 05/30/25 14:45 Docusate Sodium 100 mg BIDPRN PRN PO 05/30/25 14:45 Acetaminophen 650 mg Q6HP PRN PO 05/30/25 14:45 06/02/25 12:48 650 MG Amlodipine Besylate 5 mg DAILY PO 05/31/25 10:00 06/03/25 12:13 5 MG Calcium Acetate 667 mg TID PO 05/30/25 22:00 06/03/25 00:04 667 MG Gabapentin 400 mg HS PO 05/30/25 22:00 06/03/25 00:04 400 MG Pantoprazole Sodium 40 mg DAILY PO 05/31/25 10:00 06/03/25 12:13 40 MG Patient Own Medication 1 tab BID PO 05/30/25 22:00 UNV Patient Own Medication 1 tab DAILY PO 05/31/25 10:00 UNV Patient Own Medication 3 tab HS PO 05/30/25 22:00 UNV Carvedilol 25 mg BID PO 05/30/25 22:00 06/03/25 12:12 25 MG Lisinopril 40 mg DAILY PO 05/31/25 10:00 06/03/25 12:14 40 MG Trazodone HCl 300 mg HS PO 05/30/25 22:00 06/03/25 00:04 300 MG Metoclopramide HCl 10 mg Q6HPRN PRN IV 05/30/25 18:00 Vancomycin HCl 0 ml @ 0 mls/hr PER PHARMACY IV 05/31/25 15:15 Cefepime HCl 50 ml @ 12.5 mls/hr HS IV 06/01/25 10:00 06/01/25 21:52 12.5 MLS/HR Budesonide 0.5 mg BID NEB 06/01/25 10:00 06/03/25 06:10 0.5 MG Albuterol 2.5 mg Q6HWA NEB 06/01/25 12:00 06/03/25 12:00 2.5 MG Albuterol 2.5 mg Q3HPRN PRN NEB 06/01/25 08:15 06/03/25 02:09 2.5 MG Ipratropium [place] 0.5 mg Q6HWA NEB 06/01/25 12:00 06/03/25 12:00 0.5 MG Ipratropium [place] 0.5 mg Q3HPRN PRN NEB 06/01/25 08:15 06/03/25 02:09 0.5 MG Hydralazine HCl 10 mg Q4HP PRN IV 06/02/25 17:30 Laboratory Results Laboratory Tests 06/03/25 06:00 Chemistry Test 06/03/25 06:00 Calcium Level 7.2 mg/dL (8.7-10.4) L Microbiology Microbiology Date/Time Source Procedure Growth Status 05/31/25 14:10 Blood Blood Culture - Preliminary NO GROWTH AFTER 48 HOURS OF INCUBATION. Resulted Labs and/or images reviewed: Labs reviewed by me, Image(s) reviewed by me Assessment/Plan Assessment/Plan Impression: -abdominal pain -probable sepsis -ESRD with hemodialysis -macrocytic anemia -accelerated hypertension -COPD -dyslipidemia -history of CA, amyloidosis Plan: Events: Patient is clinically states that his have improved. -IV diuresis -change antibiotic therapy to vancomycin and cefepime -q.6 hour bronchodilators with DuoNebs, Pulmicort, add Mucomyst -nephrology consultation: Plans for renal replacement therapy -bronchodilators p.r.n. -antihypertensives -repeat labs and chest x-ray in a.m. Total time spent with patient discussing and formulating plan of care: 35 minutes. This medical document was created using an electronic medical record system with [employer] dictation system. Although this document has been carefully reviewed, there may still be some phonetic and typographical errors. These areas are purely typographical due to imperfections of the software programs, and do not reflect any compromise in the patient's medical care. 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 NP Procedure Category Date Status Time Hydralazine Injection PHA 06/02/25 In Process (Apresoline Inject 17:30 Date of Service: Jun 03, 2025 Billing Provider: TAQUERIA STEELE NP Common Visit Codes: [id number] INP/OBS CARE(HIGH) TAQUERIA STEELE NP Jun 03, 2025 13:34
--- NOTE | 2025-06-03 14:16 | DVHPN2 ---
Progress Note Date Seen: Jun 03, 2025 Medical Necessity Reason Pt with a Central, PICC or Fol: No Subjective Review of Systems Pt states he had HD today and tolerated well Patient reports: No new complaints, Feels better Objective vital signs Vital Sign Date Time Temp Pulse Resp B/P (MAP) Pulse Ox O2 Delivery O2 Flow Rate FiO2 06/03/25 13:00 98.4 78 20 139/88 (105) 91 98.4 06/03/25 12:00 Nasal Cannula* 2 28 Total Intake and Output 06/02/25 06/02/25 06/03/25 15:00 23:00 07:00 Intake Total 600 ml 240 ml Balance 600 ml 240 ml medications Current Medications Medications Dose Ordered Sig/Leda Route Start Time Stop Time Status Last Admin Dose Admin Acetaminophen/ Hydrocodone Bitart 1 tab Q4HP PRN PO 05/30/25 14:45 06/03/25 07:58 1 TAB Ondansetron HCl 4 mg Q4HP PRN IV 05/30/25 14:45 Docusate Sodium 100 mg BIDPRN PRN PO 05/30/25 14:45 Acetaminophen 650 mg Q6HP PRN PO 05/30/25 14:45 06/02/25 12:48 650 MG Amlodipine Besylate 5 mg DAILY PO 05/31/25 10:00 06/03/25 12:13 5 MG Calcium Acetate 667 mg TID PO 05/30/25 22:00 06/03/25 00:04 667 MG Gabapentin 400 mg HS PO 05/30/25 22:00 06/03/25 00:04 400 MG Pantoprazole Sodium 40 mg DAILY PO 05/31/25 10:00 06/03/25 12:13 40 MG Patient Own Medication 1 tab BID PO 05/30/25 22:00 UNV Patient Own Medication 1 tab DAILY PO 05/31/25 10:00 UNV Patient Own Medication 3 tab HS PO 05/30/25 22:00 UNV Carvedilol 25 mg BID PO 05/30/25 22:00 06/03/25 12:12 25 MG Lisinopril 40 mg DAILY PO 05/31/25 10:00 06/03/25 12:14 40 MG Trazodone HCl 300 mg HS PO 05/30/25 22:00 06/03/25 00:04 300 MG Metoclopramide HCl 10 mg Q6HPRN PRN IV 05/30/25 18:00 Vancomycin HCl 0 ml @ 0 mls/hr PER PHARMACY IV 05/31/25 15:15 Cefepime HCl 50 ml @ 12.5 mls/hr HS IV 06/01/25 10:00 06/01/25 21:52 12.5 MLS/HR Budesonide 0.5 mg BID NEB 06/01/25 10:00 06/03/25 06:10 0.5 MG Albuterol 2.5 mg Q6HWA NEB 06/01/25 12:00 06/03/25 12:00 2.5 MG Albuterol 2.5 mg Q3HPRN PRN NEB 06/01/25 08:15 06/03/25 02:09 2.5 MG Ipratropium [place] 0.5 mg Q6HWA NEB 06/01/25 12:00 06/03/25 12:00 0.5 MG Ipratropium [place] 0.5 mg Q3HPRN PRN NEB 06/01/25 08:15 06/03/25 02:09 0.5 MG Hydralazine HCl 10 mg Q4HP PRN IV 06/02/25 17:30 Acetylcysteine 100 mg Q6HR NEB 06/03/25 18:00 Examination Gen:Appears stated age, NAD Lungs: Bilateral air entry, no rales Heart: RRR, normal S1 and S2 Ext: No edema Neuro: Alert and oriented x 4 laboratory and microbiology Laboratory Tests 06/03/25 06:00 Test 06/03/25 06:00 Range/Units Serum Glucose 94 74-106 mg/dL Microbiology Date/Time Source Procedure Growth Status 05/31/25 14:10 Blood Blood Culture - Preliminary NO GROWTH AFTER 48 HOURS OF INCUBATION. Resulted Labs and/or images reviewed: Labs reviewed by me Problem List/Assessment/Plan Problem List/Assessment/Plan IMP: 1) ESRD on dialysis 2) intractable nausea and vomiting 3) anemia secondary to CKD V 4) history of depression 5) Sepsis 2/2 possible pneumonia 6) hypertension - improved REC: - HD today -Strict I&Os -Blood pressure control -BMP in a.m. Plan discussed with: Patient JOSELUIS VELEZ TRAV Jun 03, 2025 14:16
[2025-06-03] MEDS: IPRATROPIUM BROM 0.5 MG/2.5ML INH SOL ONE (15:19)
[2025-06-03] MEDS: VANCOMYCIN 1GM/250ML KIT 250 ML IV ONE (18:40)
[2025-06-03] MEDS: ACETYLCYSTEINE 10 %(100MG/ML) SOL 4ML NEB SCH (20:30)
[2025-06-04] VITALS (14 sets, daily range): BP systolic 120–145; BP diastolic 77–94; PULSE 69–90; RESP 15–18; TEMP 97.7–99.8; O2SAT 90–100
[2025-06-04 06:04] LABS: Hematocrit 23.7 % (41.0-53.0); Hemoglobin 7.7 g/dL (13.5-17.5); Mean Corpuscular Hemoglobin 32.9 pg (28.0-32.0); Mean Corpuscular Volume 100.8 fL (80.0-100.0); Nucleated Red Blood Cells % 0.1 %
[2025-06-04 06:06] LABS: Anion Gap 14 (5-15); Carbon Dioxide 26 mmol/L (20-31); Chloride 102 mmol/L (98-107); Potassium 4.1 mmol/L (3.5-5.1); Sodium 142 mmol/L (136-145)
[2025-06-04 06:11] LABS: Glucose 95 mg/dL (74-106)
[2025-06-04 06:12] LABS: BUN/Creatinine Ratio 7.0 (10.0-20.0)
[2025-06-04 06:14] LABS: Blood Urea Nitrogen 59 mg/dL (9-23); Calcium 7.8 mg/dL (8.7-10.4)
[2025-06-04] MEDS: ONDANSETRON HCL 4 MG/2 ML VIAL IV PRN (08:59)
--- NOTE | 2025-06-04 13:09 | DVHPN2 ---
Progress Note Date Seen: Jun 04, 2025 Medical Necessity Reason Pt with a Central, PICC or Fol: No Subjective Patient reports: No new complaints Objective vital signs Vital Sign Date Time Temp Pulse Resp B/P (MAP) Pulse Ox O2 Delivery O2 Flow Rate FiO2 06/04/25 12:51 76 16 100 06/04/25 12:38 99.8 129/87 (101) 99.8 06/04/25 10:28 Nasal Cannula* 2 28 Total Intake and Output 06/03/25 06/03/25 06/04/25 15:00 23:00 07:00 Intake Total 400 ml 860 ml Output Total 700 ml Balance -300 ml 860 ml medications Current Medications Medications Dose Ordered Sig/Leda Route Start Time Stop Time Status Last Admin Dose Admin Acetaminophen/ Hydrocodone Bitart 1 tab Q4HP PRN PO 05/30/25 14:45 06/04/25 09:01 1 TAB Ondansetron HCl 4 mg Q4HP PRN IV 05/30/25 14:45 06/04/25 08:59 4 MG Docusate Sodium 100 mg BIDPRN PRN PO 05/30/25 14:45 Acetaminophen 650 mg Q6HP PRN PO 05/30/25 14:45 06/02/25 12:48 650 MG Amlodipine Besylate 5 mg DAILY PO 05/31/25 10:00 06/04/25 09:01 5 MG Calcium Acetate 667 mg TID PO 05/30/25 22:00 06/04/25 13:03 667 MG Gabapentin 400 mg HS PO 05/30/25 22:00 06/03/25 21:14 400 MG Pantoprazole Sodium 40 mg DAILY PO 05/31/25 10:00 06/04/25 09:00 40 MG Patient Own Medication 1 tab BID PO 05/30/25 22:00 UNV Patient Own Medication 1 tab DAILY PO 05/31/25 10:00 UNV Patient Own Medication 3 tab HS PO 05/30/25 22:00 UNV Carvedilol 25 mg BID PO 05/30/25 22:00 06/04/25 09:00 25 MG Lisinopril 40 mg DAILY PO 05/31/25 10:00 06/04/25 08:59 40 MG Trazodone HCl 300 mg HS PO 05/30/25 22:00 06/03/25 21:14 300 MG Metoclopramide HCl 10 mg Q6HPRN PRN IV 05/30/25 18:00 Vancomycin HCl 0 ml @ 0 mls/hr PER PHARMACY IV 05/31/25 15:15 Cefepime HCl 50 ml @ 12.5 mls/hr HS IV 06/01/25 10:00 06/03/25 21:16 12.5 MLS/HR Budesonide 0.5 mg BID NEB 06/01/25 10:00 06/04/25 10:28 0.5 MG Albuterol 2.5 mg Q6HWA NEB 06/01/25 12:00 06/04/25 12:44 2.5 MG Albuterol 2.5 mg Q3HPRN PRN NEB 06/01/25 08:15 06/03/25 02:09 2.5 MG Ipratropium [place] 0.5 mg Q6HWA NEB 06/01/25 12:00 06/04/25 12:45 0.5 MG Ipratropium [place] 0.5 mg Q3HPRN PRN NEB 06/01/25 08:15 06/03/25 02:09 0.5 MG Hydralazine HCl 10 mg Q4HP PRN IV 06/02/25 17:30 Acetylcysteine 100 mg Q6HR NEB 06/03/25 18:00 06/04/25 12:44 100 MG Examination Gen: Appears stated age, NAD Heart: RRR, normal S1 and S2 Lungs: Bilateral air entry, no rales Ext: No edema Neuro: Alert and oriented x 4 laboratory and microbiology Laboratory Tests 06/04/25 05:24 Test 06/04/25 05:24 Range/Units Serum Glucose 95 74-106 mg/dL Microbiology Date/Time Source Procedure Growth Status 05/31/25 14:10 Blood Blood Culture - Preliminary NO GROWTH AFTER 72 HOURS OF INCUBATION. Resulted Labs and/or images reviewed: Labs reviewed by me Problem List/Assessment/Plan Problem List/Assessment/Plan IMP: 1) ESRD on dialysis 2) intractable nausea and vomiting 3) anemia secondary to CKD V 4) history of depression 5) Sepsis 2/2 possible pneumonia 6) hypertension - improved REC: -BMP in am -Strict I&Os -Blood pressure control -Will reassess daily for DIRECTOR OF CLINICAL TRIALS needs - Will continue to follow. Plan discussed with: Patient JOSELUIS VELEZ [facility] Jun 04, 2025 13:09
--- NOTE | 2025-06-04 13:58 | DVHPN2 ---
Reviewed: Care Plan, H&P, Labs, Medications Changes from previous H/P or p: No Changes General: Per HPI Eyes: No Pain, No Vision change, No Conjunctivae inflammation, No Eyelid inflammation, No Other, No Redness ENT: No Ear pain, No Ear discharge, No Nose pain, No Nose discharge, No Nose congestion, No Mouth pain, No Mouth swelling, No Throat pain, No Throat swelling, No Other Cardiovascular: No Chest Pain, No Palpitations, No Orthopnea, No Paroxysmal Noc. Dyspnea, No Edema, No Lt Headedness, No Other Respiratory: No Cough, No Dry, No Shortness of breath, No SOB with excertion, No Wheezing, No Hemoptysis, No Pleuritic Pain, No Sputum, No Other Gastrointestinal: Nausea, Vomiting, Abdominal Pain; No Diarrhea, No Constipation, No Melena, No Hematochezia, No Other Genitourinary: No Dysuria, No Frequency, No Incontinence, No Hematuria, No Retention, No Other Musculoskeletal: No other, No neck pain, No shoulder pain, No arm pain, No back pain, No hand pain, No leg pain, No foot pain Skin: No Rash, No Lesions, No Jaundice, No Bruising, No Other Objective Vitals Vital Signs Date Time Temp Pulse Resp B/P (MAP) Pulse Ox O2 Delivery O2 Flow Rate FiO2 06/04/25 12:51 76 16 100 06/04/25 12:38 99.8 129/87 (101) 99.8 06/04/25 10:28 Nasal Cannula* 2 28 Intake/Output Intake and Output 06/04/25 07:00 Intake Total 1260 ml Output Total 700 ml Balance 560 ml Intake Oral 1210 ml IV Total 50 ml Output Urine Total 700 ml # Voids 2 # Bowel Movements 1 General Appearance: Alert, Oriented X3, Cooperative, mild distress HEENT: Atraumatic, PERRLA Lungs: Clear to auscultation, Normal air movement Cardiovascular: Normal S1, Normal S2 Abdomen: Normal bowel sounds, Soft, No tenderness, No hepatospenomegaly, No masses Genitourinary: No Apparent Abnormalities Musculoskeletal: Normal sensory function, Normal motor function Skin: Dry, Intact Psych/Mental Status: Mental status NL, Mood NL Medications Current Medications Medications Dose Ordered Sig/Leda Route Start Time Stop Time Status Last Admin Dose Admin Acetaminophen/ Hydrocodone Bitart 1 tab Q4HP PRN PO 05/30/25 14:45 06/04/25 13:11 1 TAB Ondansetron HCl 4 mg Q4HP PRN IV 05/30/25 14:45 06/04/25 08:59 4 MG Docusate Sodium 100 mg BIDPRN PRN PO 05/30/25 14:45 Acetaminophen 650 mg Q6HP PRN PO 05/30/25 14:45 06/02/25 12:48 650 MG Amlodipine Besylate 5 mg DAILY PO 05/31/25 10:00 06/04/25 09:01 5 MG Calcium Acetate 667 mg TID PO 05/30/25 22:00 06/04/25 13:03 667 MG Gabapentin 400 mg HS PO 05/30/25 22:00 06/03/25 21:14 400 MG Pantoprazole Sodium 40 mg DAILY PO 05/31/25 10:00 06/04/25 09:00 40 MG Patient Own Medication 1 tab BID PO 05/30/25 22:00 UNV Patient Own Medication 1 tab DAILY PO 05/31/25 10:00 UNV Patient Own Medication 3 tab HS PO 05/30/25 22:00 UNV Carvedilol 25 mg BID PO 05/30/25 22:00 06/04/25 09:00 25 MG Lisinopril 40 mg DAILY PO 05/31/25 10:00 06/04/25 08:59 40 MG Trazodone HCl 300 mg HS PO 05/30/25 22:00 06/03/25 21:14 300 MG Metoclopramide HCl 10 mg Q6HPRN PRN IV 05/30/25 18:00 Vancomycin HCl 0 ml @ 0 mls/hr PER PHARMACY IV 05/31/25 15:15 Cefepime HCl 50 ml @ 12.5 mls/hr HS IV 06/01/25 10:00 06/03/25 21:16 12.5 MLS/HR Budesonide 0.5 mg BID NEB 06/01/25 10:00 06/04/25 10:28 0.5 MG Albuterol 2.5 mg Q6HWA NEB 06/01/25 12:00 06/04/25 12:44 2.5 MG Albuterol 2.5 mg Q3HPRN PRN NEB 06/01/25 08:15 06/03/25 02:09 2.5 MG Ipratropium [place] 0.5 mg Q6HWA NEB 06/01/25 12:00 06/04/25 12:45 0.5 MG Ipratropium [place] 0.5 mg Q3HPRN PRN NEB 06/01/25 08:15 06/03/25 02:09 0.5 MG Hydralazine HCl 10 mg Q4HP PRN IV 06/02/25 17:30 Acetylcysteine 100 mg Q6HR NEB 06/03/25 18:00 06/04/25 12:44 100 MG Laboratory Results Laboratory Tests 06/04/25 05:24 Chemistry Test 06/04/25 05:24 Calcium Level 7.8 mg/dL (8.7-10.4) L Microbiology Microbiology Date/Time Source Procedure Growth Status 05/31/25 14:10 Blood Blood Culture - Preliminary NO GROWTH AFTER 72 HOURS OF INCUBATION. Resulted Assessment/Plan Assessment/Plan -abdominal pain -probable sepsis -ESRD with hemodialysis -macrocytic anemia -accelerated hypertension -COPD -dyslipidemia -history of CA, amyloidosis Plan: Continue current management. Continue IV diuresis Continue Vancomycin and cefepime Continue Duonebs, pulmicort, and mucomyst. Appreciate storyboard artist input. -bronchodilators p.r.n. -antihypertensives Plan discussed with: Patient Date of Service: Jun 04, 2025 Billing Provider: JAKOB LUCERO MD Common Visit Codes: [id number] INP/OBS CARE(HIGH) JAKOB LUCERO MD Jun 04, 2025 13:58
[2025-06-05] VITALS (9 sets, daily range): BP systolic 130–135; BP diastolic 78–91; PULSE 73–86; RESP 16–18; TEMP 97.2–98.4; O2SAT 90–98
[2025-06-05 05:33] LABS: Hematocrit 23.7 % (41.0-53.0); Hemoglobin 7.8 g/dL (13.5-17.5); Mean Corpuscular Hemoglobin 33.2 pg (28.0-32.0); Mean Corpuscular Volume 100.2 fL (80.0-100.0); Nucleated Red Blood Cells % 0.1 %
[2025-06-05 05:42] LABS: Anion Gap 16 (5-15); Carbon Dioxide 25 mmol/L (20-31); Chloride 102 mmol/L (98-107); Potassium 4.3 mmol/L (3.5-5.1); Sodium 143 mmol/L (136-145)
[2025-06-05 05:47] LABS: Glucose 90 mg/dL (74-106)
[2025-06-05 05:48] LABS: BUN/Creatinine Ratio 7.4 (10.0-20.0)
[2025-06-05 05:53] LABS: Blood Urea Nitrogen 71 mg/dL (9-23); Calcium 7.8 mg/dL (8.7-10.4)
[2025-06-05] MEDS: SODIUM CHL 0.9% 1000 ML BAG XX ONE (10:30)
--- NOTE | 2025-06-05 12:15 | DVHPN2 ---
Progress Note Date Seen: Jun 05, 2025 Medical Necessity Reason Pt with a Central, PICC or Fol: No Subjective Patient reports: No new complaints, Feels better Objective vital signs Vital Sign Date Time Temp Pulse Resp B/P (MAP) Pulse Ox O2 Delivery O2 Flow Rate FiO2 06/05/25 08:30 98.4 80 17 132/90 (104) 92 98.4 06/05/25 08:00 Nasal Cannula* 2 28 Total Intake and Output 06/04/25 06/04/25 06/05/25 15:00 23:00 07:00 Intake Total 420 ml 700 ml Output Total 450 ml Balance 420 ml 250 ml medications Current Medications Medications Dose Ordered Sig/Leda Route Start Time Stop Time Status Last Admin Dose Admin Acetaminophen/ Hydrocodone Bitart 1 tab Q4HP PRN PO 05/30/25 14:45 06/05/25 09:06 1 TAB Ondansetron HCl 4 mg Q4HP PRN IV 05/30/25 14:45 06/04/25 08:59 4 MG Docusate Sodium 100 mg BIDPRN PRN PO 05/30/25 14:45 Acetaminophen 650 mg Q6HP PRN PO 05/30/25 14:45 06/02/25 12:48 650 MG Amlodipine Besylate 5 mg DAILY PO 05/31/25 10:00 06/04/25 09:01 5 MG Calcium Acetate 667 mg TID PO 05/30/25 22:00 06/05/25 09:06 667 MG Gabapentin 400 mg HS PO 05/30/25 22:00 06/04/25 22:06 400 MG Pantoprazole Sodium 40 mg DAILY PO 05/31/25 10:00 06/05/25 09:06 40 MG Patient Own Medication 1 tab BID PO 05/30/25 22:00 UNV Patient Own Medication 1 tab DAILY PO 05/31/25 10:00 UNV Patient Own Medication 3 tab HS PO 05/30/25 22:00 UNV Carvedilol 25 mg BID PO 05/30/25 22:00 06/04/25 22:05 25 MG Lisinopril 40 mg DAILY PO 05/31/25 10:00 06/04/25 08:59 40 MG Trazodone HCl 300 mg HS PO 05/30/25 22:00 06/04/25 22:06 300 MG Metoclopramide HCl 10 mg Q6HPRN PRN IV 05/30/25 18:00 Vancomycin HCl 0 ml @ 0 mls/hr PER PHARMACY IV 05/31/25 15:15 Cefepime HCl 50 ml @ 12.5 mls/hr HS IV 06/01/25 10:00 06/04/25 22:06 12.5 MLS/HR Budesonide 0.5 mg BID NEB 06/01/25 10:00 06/05/25 07:06 0.5 MG Albuterol 2.5 mg Q6HWA NEB 06/01/25 12:00 06/05/25 07:05 2.5 MG Albuterol 2.5 mg Q3HPRN PRN NEB 06/01/25 08:15 06/03/25 02:09 2.5 MG Ipratropium [place] 0.5 mg Q6HWA NEB 06/01/25 12:00 06/05/25 07:05 0.5 MG Ipratropium [place] 0.5 mg Q3HPRN PRN NEB 06/01/25 08:15 06/03/25 02:09 0.5 MG Hydralazine HCl 10 mg Q4HP PRN IV 06/02/25 17:30 Acetylcysteine 100 mg Q6HR NEB 06/03/25 18:00 06/05/25 07:05 100 MG Examination Gen: Appears stated age, NAD Heart: RRR, normal S1 and S2 Lungs: Bilateral air entry, no rales Abd: Normoactive bowel sounds, soft, nontender, nondistended. Ext: No edema Neuro: alert and oriented x 4 laboratory and microbiology Laboratory Tests 06/05/25 05:09 Test 06/05/25 05:09 Range/Units Serum Glucose 90 74-106 mg/dL Microbiology Date/Time Source Procedure Growth Status 05/31/25 14:10 Blood Blood Culture - Preliminary NO GROWTH AFTER 72 HOURS OF INCUBATION. Resulted Labs and/or images reviewed: Labs reviewed by me Problem List/Assessment/Plan Problem List/Assessment/Plan IMP: 1) ESRD on dialysis 2) intractable nausea and vomiting 3) anemia secondary to CKD V 4) history of depression 5) Sepsis 2/2 possible pneumonia 6) hypertension - improved REC: -HD tentatively today -BMP in am -Strict I&Os -Blood pressure control - Will continue to follow Plan discussed with: Patient DEZ VELEZHA DRY ROOM ATTENDANT Jun 05, 2025 12:15
--- NOTE | 2025-06-05 12:43 | DVHPN2 ---
Subjective The patient seen and examined at bedside. Still complains of abdominal pain. feel better. Reviewed: Care Plan, H&P, Labs, Medications Changes from previous H/P or p: No Changes General: Per HPI Eyes: No Pain, No Vision change, No Conjunctivae inflammation, No Eyelid inflammation, No Other, No Redness ENT: No Ear pain, No Ear discharge, No Nose pain, No Nose discharge, No Nose congestion, No Mouth pain, No Mouth swelling, No Throat pain, No Throat swelling, No Other Cardiovascular: No Chest Pain, No Palpitations, No Orthopnea, No Paroxysmal Noc. Dyspnea, No Edema, No Lt Headedness, No Other Respiratory: No Cough, No Dry, No Shortness of breath, No SOB with excertion, No Wheezing, No Hemoptysis, No Pleuritic Pain, No Sputum, No Other Gastrointestinal: Nausea, Vomiting, Abdominal Pain; No Diarrhea, No Constipation, No Melena, No Hematochezia, No Other Genitourinary: No Dysuria, No Frequency, No Incontinence, No Hematuria, No Retention, No Other Musculoskeletal: No other, No neck pain, No shoulder pain, No arm pain, No back pain, No hand pain, No leg pain, No foot pain Skin: No Rash, No Lesions, No Jaundice, No Bruising, No Other Objective Vitals Vital Signs Date Time Temp Pulse Resp B/P (MAP) Pulse Ox O2 Delivery O2 Flow Rate FiO2 06/05/25 12:34 98.0 78 17 133/91 (105) 92 98.0 06/05/25 08:00 Nasal Cannula* 2 28 Intake/Output Intake and Output 06/05/25 07:00 Intake Total 1120 ml Output Total 450 ml Balance 670 ml Intake Oral 1120 ml Output Urine Total 450 ml # Voids 3 General Appearance: Alert, Oriented X3, Cooperative, mild distress HEENT: Atraumatic, PERRLA Lungs: Clear to auscultation, Normal air movement Cardiovascular: Normal S1, Normal S2 Abdomen: Normal bowel sounds, Soft, No tenderness, No hepatospenomegaly, No masses Genitourinary: No Apparent Abnormalities Musculoskeletal: Normal sensory function, Normal motor function Skin: Dry, Intact Psych/Mental Status: Mental status NL, Mood NL Medications Current Medications Medications Dose Ordered Sig/Leda Route Start Time Stop Time Status Last Admin Dose Admin Acetaminophen/ Hydrocodone Bitart 1 tab Q4HP PRN PO 05/30/25 14:45 06/05/25 09:06 1 TAB Ondansetron HCl 4 mg Q4HP PRN IV 05/30/25 14:45 06/04/25 08:59 4 MG Docusate Sodium 100 mg BIDPRN PRN PO 05/30/25 14:45 Acetaminophen 650 mg Q6HP PRN PO 05/30/25 14:45 06/02/25 12:48 650 MG Amlodipine Besylate 5 mg DAILY PO 05/31/25 10:00 06/04/25 09:01 5 MG Calcium Acetate 667 mg TID PO 05/30/25 22:00 06/05/25 09:06 667 MG Gabapentin 400 mg HS PO 05/30/25 22:00 06/04/25 22:06 400 MG Pantoprazole Sodium 40 mg DAILY PO 05/31/25 10:00 06/05/25 09:06 40 MG Patient Own Medication 1 tab BID PO 05/30/25 22:00 UNV Patient Own Medication 1 tab DAILY PO 05/31/25 10:00 UNV Patient Own Medication 3 tab HS PO 05/30/25 22:00 UNV Carvedilol 25 mg BID PO 05/30/25 22:00 06/04/25 22:05 25 MG Lisinopril 40 mg DAILY PO 05/31/25 10:00 06/04/25 08:59 40 MG Trazodone HCl 300 mg HS PO 05/30/25 22:00 06/04/25 22:06 300 MG Metoclopramide HCl 10 mg Q6HPRN PRN IV 05/30/25 18:00 Vancomycin HCl 0 ml @ 0 mls/hr PER PHARMACY IV 05/31/25 15:15 Cefepime HCl 50 ml @ 12.5 mls/hr HS IV 06/01/25 10:00 06/04/25 22:06 12.5 MLS/HR Budesonide 0.5 mg BID NEB 06/01/25 10:00 06/05/25 07:06 0.5 MG Albuterol 2.5 mg Q6HWA NEB 06/01/25 12:00 06/05/25 07:05 2.5 MG Albuterol 2.5 mg Q3HPRN PRN NEB 06/01/25 08:15 06/03/25 02:09 2.5 MG Ipratropium [place] 0.5 mg Q6HWA [facility] 06/01/25 12:00 06/05/25 07:05 0.5 MG Ipratropium [place] 0.5 mg Q3HPRN PRN NEB 06/01/25 08:15 06/03/25 02:09 0.5 MG Hydralazine HCl 10 mg Q4HP PRN IV 06/02/25 17:30 Acetylcysteine 100 mg Q6HR NEB 06/03/25 18:00 06/05/25 07:05 100 MG Laboratory Results Laboratory Tests 06/05/25 05:09 Chemistry Test 06/05/25 05:09 Calcium Level 7.8 mg/dL (8.7-10.4) L Microbiology Microbiology Date/Time Source Procedure Growth Status 05/31/25 14:10 Blood Blood Culture - Preliminary NO GROWTH AFTER 72 HOURS OF INCUBATION. Resulted Labs and/or images reviewed: Labs reviewed by me Assessment/Plan Assessment/Plan -abdominal pain -probable sepsis -ESRD with hemodialysis -macrocytic anemia -accelerated hypertension -COPD -dyslipidemia -history of CA, amyloidosis Plan: Continue current management. Continue IV diuresis Continue Vancomycin and cefepime Continue Duonebs, pulmicort, and mucomyst. Appreciate visitor information assistant input. -bronchodilators p.r.n. -antihypertensives Plan discussed with: Patient Date of Service: Jun 05, 2025 Billing Provider: JAKOB LUCERO MD Common Visit Codes: [id number] INP/OBS CARE(HIGH) JAKOB LUCERO MD Jun 05, 2025 12:43
[2025-06-06] VITALS (15 sets, daily range): BP systolic 118–137; BP diastolic 77–96; PULSE 72–91; RESP 16–20; TEMP 97.5–99.2; O2SAT 90–100
[2025-06-06 07:20] LABS: Chloride 104 mmol/L (98-107); Potassium 4.4 mmol/L (3.5-5.1)
[2025-06-06 07:21] LABS: Anion Gap 13 (5-15); Carbon Dioxide 28 mmol/L (20-31)
[2025-06-06 07:24] LABS: Hematocrit 26.1 % (41.0-53.0); Hemoglobin 8.8 g/dL (13.5-17.5); Mean Corpuscular Hemoglobin 33.7 pg (28.0-32.0); Mean Corpuscular Volume 100.5 fL (80.0-100.0)
[2025-06-06 07:26] LABS: BUN/Creatinine Ratio 5.3 (10.0-20.0); Glucose 84 mg/dL (74-106)
[2025-06-06 07:32] LABS: Blood Urea Nitrogen 37 mg/dL (9-23); Calcium 8.6 mg/dL (8.7-10.4); Sodium 145 mmol/L (136-145)
[2025-06-06 09:07] LABS: Total Cells Counted 100.0 (100)
--- NOTE | 2025-06-06 09:13 | DVH ---
CHEST RADIOGRAPH INDICATION: pna TECHNIQUE: Single frontal view of the chest was obtained COMPARISON: XY CHEST PORTABLE on DOS: 06/02/25, XY CHEST PORTABLE on DOS: 05/30/25, XY CHEST TWO VIEWS ROUTINE on DOS: 02/11/25, XY CHEST TWO VIEWS ROUTINE on DOS: 12/14/24, XY CHEST XRAY 1 VIEW on DOS: 04/17/23 FINDINGS/IMPRESSION: Small right pleural effusion with adjacent opacity. Bilateral prominence of the interstitial markings, [id number]. Unchanged cardiomediastinal silhouette. No pneumothorax. Unchanged osseous structures. Right central venous catheter tip projects over the SVC.
--- NOTE | 2025-06-06 11:07 | DVHPN2 ---
Subjective Patient reporting generalized weakness. Reviewed: Care Plan, H&P, Labs, Medications Changes from previous H/P or p: No Changes General: Per HPI Eyes: No Pain, No Vision change, No Conjunctivae inflammation, No Eyelid inflammation, No Other, No Redness ENT: No Ear pain, No Ear discharge, No Nose pain, No Nose discharge, No Nose congestion, No Mouth pain, No Mouth swelling, No Throat pain, No Throat swelling, No Other Cardiovascular: No Chest Pain, No Palpitations, No Orthopnea, No Paroxysmal Noc. Dyspnea, No Edema, No Lt Headedness, No Other Respiratory: No Cough, No Dry, No Shortness of breath, No SOB with excertion, No Wheezing, No Hemoptysis, No Pleuritic Pain, No Sputum, No Other Gastrointestinal: Nausea, Vomiting, Abdominal Pain; No Diarrhea, No Constipation, No Melena, No Hematochezia, No Other Genitourinary: No Dysuria, No Frequency, No Incontinence, No Hematuria, No Retention, No Other Musculoskeletal: No other, No neck pain, No shoulder pain, No arm pain, No back pain, No hand pain, No leg pain, No foot pain Skin: No Rash, No Lesions, No Jaundice, No Bruising, No Other Objective Vitals Vital Signs Date Time Temp Pulse Resp B/P (MAP) Pulse Ox O2 Delivery O2 Flow Rate FiO2 06/06/25 09:32 73 132/92 06/06/25 09:00 98.3 17 96 98.3 06/06/25 06:52 Room Air 0.0 06/06/25 06:52 21 Intake/Output Intake and Output 06/06/25 07:00 Intake Total 1140 ml Output Total 300 ml Balance 840 ml Intake Oral 1090 ml IV Total 50 ml Output Urine Total 300 ml # Voids 3 General Appearance: Alert, Oriented X3, Cooperative, mild distress HEENT: Atraumatic, PERRLA Lungs: Clear to auscultation, Normal air movement Cardiovascular: Normal S1, Normal S2 Abdomen: Normal bowel sounds, Soft, No tenderness, No hepatospenomegaly, No masses Genitourinary: No Apparent Abnormalities Musculoskeletal: Normal sensory function, Normal motor function Skin: Dry, Intact Psych/Mental Status: Mental status NL, Mood NL Medications Current Medications Medications Dose Ordered Sig/Leda Route Start Time Stop Time Status Last Admin Dose Admin Acetaminophen/ Hydrocodone Bitart 1 tab Q4HP PRN PO 05/30/25 14:45 06/06/25 10:15 1 TAB Ondansetron HCl 4 mg Q4HP PRN IV 05/30/25 14:45 06/04/25 08:59 4 MG Docusate Sodium 100 mg BIDPRN PRN PO 05/30/25 14:45 Acetaminophen 650 mg Q6HP PRN PO 05/30/25 14:45 06/02/25 12:48 650 MG Amlodipine Besylate 5 mg DAILY PO 05/31/25 10:00 06/06/25 09:32 5 MG Calcium Acetate 667 mg TID PO 05/30/25 22:00 06/06/25 09:35 667 MG Gabapentin 400 mg HS PO 05/30/25 22:00 06/05/25 21:04 400 MG Pantoprazole Sodium 40 mg DAILY PO 05/31/25 10:00 06/06/25 09:32 40 MG Patient Own Medication 1 tab BID PO 05/30/25 22:00 UNV Patient Own Medication 1 tab DAILY PO 05/31/25 10:00 UNV Patient Own Medication 3 tab HS PO 05/30/25 22:00 UNV Carvedilol 25 mg BID PO 05/30/25 22:00 06/06/25 09:32 25 MG Lisinopril 40 mg DAILY PO 05/31/25 10:00 06/06/25 09:31 40 MG Trazodone HCl 300 mg HS PO 05/30/25 22:00 06/05/25 21:05 300 MG Metoclopramide HCl 10 mg Q6HPRN PRN IV 05/30/25 18:00 Vancomycin HCl 0 ml @ 0 mls/hr PER PHARMACY IV 05/31/25 15:15 Cefepime HCl 50 ml @ 12.5 mls/hr HS IV 06/01/25 10:00 06/05/25 21:12 12.5 MLS/HR Budesonide 0.5 mg BID NEB 06/01/25 10:00 06/05/25 18:50 0.5 MG Albuterol 2.5 mg Q6HWA NEB 06/01/25 12:00 06/06/25 06:52 2.5 MG Albuterol 2.5 mg Q3HPRN PRN NEB 06/01/25 08:15 06/03/25 02:09 2.5 MG Ipratropium [place] 0.5 mg Q6HWA NEB 06/01/25 12:00 06/06/25 06:52 0.5 MG Ipratropium [place] 0.5 mg Q3HPRN PRN NEB 06/01/25 08:15 06/03/25 02:09 0.5 MG Hydralazine HCl 10 mg Q4HP PRN IV 06/02/25 17:30 Acetylcysteine 100 mg Q6HR NEB 06/03/25 18:00 06/06/25 06:52 100 MG Laboratory Results Laboratory Tests 06/06/25 05:30 Chemistry Test 06/06/25 05:30 Calcium Level 8.6 mg/dL (8.7-10.4) L Microbiology Microbiology Date/Time Source Procedure Growth Status 05/31/25 14:10 Blood Blood Culture - Final NO GROWTH AFTER 5 DAYS OF INCUBATION. Complete Labs and/or images reviewed: Labs reviewed by me, Image(s) reviewed by me Assessment/Plan Assessment/Plan Impression: -abdominal pain -probable sepsis -ESRD with hemodialysis -macrocytic anemia -accelerated hypertension -COPD -dyslipidemia -history of CA, amyloidosis Plan: Events: Patient reports that his chest pain has improved. Denies any shortness of breath. -ambulate with RA -IV diuresis -change antibiotic therapy to vancomycin and cefepime -q.6 hour bronchodilators with DuoNebs, Pulmicort, add Mucomyst -nephrology consultation: Plans for renal replacement therapy -bronchodilators p.r.n. -antihypertensives Total time spent with patient discussing and formulating plan of care: 35 minutes. This medical document was created using an electronic medical record system with [employer] dictation system. Although this document has been carefully reviewed, there may still be some phonetic and typographical errors. These areas are purely typographical due to imperfections of the software programs, and do not reflect any compromise in the patient's medical care. 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 G[employer]MENT [employer]URNER Procedure Category Date Status Time Chest Xray 1 View XY 06/06/25 Resulted 08:26 Creatinine LAB 06/07/25 Verified 04:00 Vancomycin,Random LAB 06/07/25 Verified 04:00 Basic Metabolic Panel LAB 06/07/25 Verified 04:00 Complete Blood Count LAB 06/07/25 Verified 04:00 Date of Service: Jun 06, 2025 Billing Provider: TAQUERIA STEELE NP Common Visit Codes: [id number] INP/OBS CARE(HIGH) TAQUERIA STEELE NP Jun 06, 2025 11:07
[2025-06-07] VITALS (11 sets, daily range): BP systolic 120–145; BP diastolic 81–99; PULSE 59–97; RESP 16–20; TEMP 98–98.6; O2SAT 93–100
[2025-06-07 06:46] LABS: Anion Gap 14 (5-15); Carbon Dioxide 27 mmol/L (20-31); Chloride 103 mmol/L (98-107); Sodium 144 mmol/L (136-145)
[2025-06-07 06:47] LABS: Calcium 8.9 mg/dL (8.7-10.4)
[2025-06-07 06:50] LABS: Potassium 5.2 mmol/L (3.5-5.1)
[2025-06-07 06:52] LABS: BUN/Creatinine Ratio 6.6 (10.0-20.0); Glucose 87 mg/dL (74-106)
[2025-06-07 06:54] LABS: Blood Urea Nitrogen 58 mg/dL (9-23); Hemoglobin 9.2 g/dL (13.5-17.5)
[2025-06-07 06:56] LABS: Hematocrit 27.7 % (41.0-53.0); Mean Corpuscular Hemoglobin 33.2 pg (28.0-32.0); Mean Corpuscular Volume 100.3 fL (80.0-100.0); Nucleated Red Blood Cells % 0.1 %
[2025-06-07] MEDS ORDERED: SODIUM CHL 0.9% 1000 ML BAG XX ONE (07:00)
[2025-06-07] MEDS: CALCIUM ACETATE 667 MG CAP PO SCH (08:00)
--- NOTE | 2025-06-07 09:14 | DVHPN2 ---
Subjective Patient reporting generalized weakness. Reviewed: Care Plan, H&P, Labs, Medications Changes from previous H/P or p: No Changes General: Per HPI Eyes: No Pain, No Vision change, No Conjunctivae inflammation, No Eyelid inflammation, No Other, No Redness ENT: No Ear pain, No Ear discharge, No Nose pain, No Nose discharge, No Nose congestion, No Mouth pain, No Mouth swelling, No Throat pain, No Throat swelling, No Other Cardiovascular: No Chest Pain, No Palpitations, No Orthopnea, No Paroxysmal Noc. Dyspnea, No Edema, No Lt Headedness, No Other Respiratory: No Cough, No Dry, No Shortness of breath, No SOB with excertion, No Wheezing, No Hemoptysis, No Pleuritic Pain, No Sputum, No Other Gastrointestinal: Nausea, Vomiting, Abdominal Pain; No Diarrhea, No Constipation, No Melena, No Hematochezia, No Other Genitourinary: No Dysuria, No Frequency, No Incontinence, No Hematuria, No Retention, No Other Musculoskeletal: No other, No neck pain, No shoulder pain, No arm pain, No back pain, No hand pain, No leg pain, No foot pain Skin: No Rash, No Lesions, No Jaundice, No Bruising, No Other Objective Vitals Vital Signs Date Time Temp Pulse Resp B/P (MAP) Pulse Ox O2 Delivery O2 Flow Rate FiO2 06/07/25 08:00 Nasal Cannula* 2 28 06/07/25 06:56 72 16 100 06/07/25 05:00 98.0 129/84 (99) 98.0 Intake/Output Intake and Output 06/07/25 07:00 Intake Total 1115 ml Output Total 575 ml Balance 540 ml Intake Oral 1115 ml Output Urine Total 575 ml # Voids 2 General Appearance: Alert, Oriented X3, Cooperative, mild distress HEENT: Atraumatic, PERRLA Lungs: Clear to auscultation, Normal air movement Cardiovascular: Normal S1, Normal S2 Abdomen: Normal bowel sounds, Soft, No tenderness, No hepatospenomegaly, No masses Genitourinary: No Apparent Abnormalities Musculoskeletal: Normal sensory function, Normal motor function Skin: Dry, Intact Psych/Mental Status: Mental status NL, Mood NL Medications Current Medications Medications Dose Ordered Sig/Leda Route Start Time Stop Time Status Last Admin Dose Admin Acetaminophen/ Hydrocodone Bitart 1 tab Q4HP PRN PO 05/30/25 14:45 06/06/25 10:15 1 TAB Ondansetron HCl 4 mg Q4HP PRN IV 05/30/25 14:45 06/04/25 08:59 4 MG Docusate Sodium 100 mg BIDPRN PRN PO 05/30/25 14:45 Acetaminophen 650 mg Q6HP PRN PO 05/30/25 14:45 06/02/25 12:48 650 MG Amlodipine Besylate 5 mg DAILY PO 05/31/25 10:00 06/06/25 09:32 5 MG Gabapentin 400 mg HS PO 05/30/25 22:00 06/06/25 22:07 400 MG Pantoprazole Sodium 40 mg DAILY PO 05/31/25 10:00 06/06/25 09:32 40 MG Patient Own Medication 1 tab BID PO 05/30/25 22:00 UNV Patient Own Medication 1 tab DAILY PO 05/31/25 10:00 UNV Patient Own Medication 3 tab HS PO 05/30/25 22:00 UNV Carvedilol 25 mg BID PO 05/30/25 22:00 06/06/25 22:08 25 MG Lisinopril 40 mg DAILY PO 05/31/25 10:00 06/06/25 09:31 40 MG Trazodone HCl 300 mg HS PO 05/30/25 22:00 06/06/25 22:07 300 MG Metoclopramide HCl 10 mg Q6HPRN PRN IV 05/30/25 18:00 Vancomycin HCl 0 ml @ 0 mls/hr PER PHARMACY IV 05/31/25 15:15 Cefepime HCl 50 ml @ 12.5 mls/hr HS IV 06/01/25 10:00 06/06/25 22:15 12.5 MLS/HR Budesonide 0.5 mg BID NEB 06/01/25 10:00 06/07/25 06:47 0.5 MG Albuterol 2.5 mg Q6HWA NEB 06/01/25 12:00 06/07/25 06:47 2.5 MG Albuterol 2.5 mg Q3HPRN PRN NEB 06/01/25 08:15 06/03/25 02:09 2.5 MG Ipratropium [place] 0.5 mg Q6HWA NEB 06/01/25 12:00 06/07/25 06:48 0.5 MG Ipratropium [place] 0.5 mg Q3HPRN PRN NEB 06/01/25 08:15 06/03/25 02:09 0.5 MG Hydralazine HCl 10 mg Q4HP PRN IV 06/02/25 17:30 Acetylcysteine 100 mg Q6HR NEB 06/03/25 18:00 06/07/25 06:48 100 MG Calcium Acetate 667 mg TIDWMEALS PO 06/07/25 08:00 Laboratory Results Laboratory Tests 06/07/25 05:08 Chemistry Test 06/07/25 05:08 Calcium Level 8.9 mg/dL (8.7-10.4) Phosphorus Level 6.9 mg/dL (2.4-5.1) H Microbiology Microbiology Date/Time Source Procedure Growth Status 05/31/25 14:10 Blood Blood Culture - Final NO GROWTH AFTER 5 DAYS OF INCUBATION. Complete Labs and/or images reviewed: Labs reviewed by me, Image(s) reviewed by me Assessment/Plan Assessment/Plan Impression: -abdominal pain -probable sepsis -ESRD with hemodialysis -macrocytic anemia -accelerated hypertension -COPD -dyslipidemia -history of CA, amyloidosis Plan: Events: Patient had hypoxia after ambulating yesterday. Currently receiving hemodialysis. We will reassess O2 needs. Clinically, patient states that he is improving. -ambulate with RA -change antibiotic therapy to vancomycin and cefepime -q.6 hour bronchodilators with DuoNebs, Pulmicort, add Mucomyst -nephrology consultation: Plans for renal replacement therapy -bronchodilators p.r.n. -antihypertensives Total time spent with patient discussing and formulating plan of care: 35 minutes. This medical document was created using an electronic medical record system with [employer] dictation system. Although this document has been carefully reviewed, there may still be some phonetic and typographical errors. These areas are purely typographical due to imperfections of the software programs, and do not reflect any compromise in the patient's medical care. Plan discussed with: Patient, Other (RN) Date of Service: Jun 07, 2025 Billing Provider: TAQUERIA STEELE NP Common Visit Codes: [id number] INP/OBS CARE(HIGH) Procedure Codes: [id number] SEDATION +15MIN TAQUERIA STEELE NP Jun 07, 2025 09:14
[2025-06-07] MEDS: VANCOMYCIN 500mg/100mL 100 ML IV ONE (11:47)
--- NOTE | 2025-06-07 12:49 | DVHPN2 ---
Progress Note Date Seen: Jun 07, 2025 Medical Necessity Reason Pt with a Central, PICC or Fol: No Objective vital signs Vital Sign Date Time Temp Pulse Resp B/P (MAP) Pulse Ox O2 Delivery O2 Flow Rate FiO2 06/07/25 11:32 106/88 06/07/25 11:31 78 06/07/25 11:27 16 100 06/07/25 11:21 Nasal Cannula 1.0 06/07/25 11:21 24 06/07/25 09:14 98.2 98.2 Total Intake and Output 06/06/25 06/06/25 06/07/25 15:00 23:00 07:00 Intake Total 715 ml 400 ml Output Total 575 ml Balance 140 ml 400 ml medications Current Medications Medications Dose Ordered Sig/Leda Route Start Time Stop Time Status Last Admin Dose Admin Acetaminophen/ Hydrocodone Bitart 1 tab Q4HP PRN PO 05/30/25 14:45 06/06/25 10:15 1 TAB Ondansetron HCl 4 mg Q4HP PRN IV 05/30/25 14:45 06/04/25 08:59 4 MG Docusate Sodium 100 mg BIDPRN PRN PO 05/30/25 14:45 Acetaminophen 650 mg Q6HP PRN PO 05/30/25 14:45 06/02/25 12:48 650 MG Amlodipine Besylate 5 mg DAILY PO 05/31/25 10:00 06/06/25 09:32 5 MG Gabapentin 400 mg HS PO 05/30/25 22:00 06/06/25 22:07 400 MG Pantoprazole Sodium 40 mg DAILY PO 05/31/25 10:00 06/06/25 09:32 40 MG Patient Own Medication 1 tab BID PO 05/30/25 22:00 UNV Patient Own Medication 1 tab DAILY PO 05/31/25 10:00 UNV Patient Own Medication 3 tab HS PO 05/30/25 22:00 UNV Carvedilol 25 mg BID PO 05/30/25 22:00 06/06/25 22:08 25 MG Lisinopril 40 mg DAILY PO 05/31/25 10:00 06/06/25 09:31 40 MG Trazodone HCl 300 mg HS PO 05/30/25 22:00 06/06/25 22:07 300 MG Metoclopramide HCl 10 mg Q6HPRN PRN IV 05/30/25 18:00 Vancomycin HCl 0 ml @ 0 mls/hr PER PHARMACY IV 05/31/25 15:15 Cefepime HCl 50 ml @ 12.5 mls/hr HS IV 06/01/25 10:00 06/06/25 22:15 12.5 MLS/HR Budesonide 0.5 mg BID NEB 06/01/25 10:00 06/07/25 06:47 0.5 MG Albuterol 2.5 mg Q6HWA NEB 06/01/25 12:00 06/07/25 11:21 2.5 MG Albuterol 2.5 mg Q3HPRN PRN NEB 06/01/25 08:15 06/03/25 02:09 2.5 MG Ipratropium [place] 0.5 mg Q6HWA [facility] 06/01/25 12:00 06/07/25 11:21 0.5 MG Ipratropium [place] 0.5 mg Q3HPRN PRN NEB 06/01/25 08:15 06/03/25 02:09 0.5 MG Hydralazine HCl 10 mg Q4HP PRN IV 06/02/25 17:30 Acetylcysteine 100 mg Q6HR NEB 06/03/25 18:00 06/07/25 11:21 100 MG Calcium Acetate 667 mg TIDWMEALS PO 06/07/25 08:00 Examination: GENERAL:Normal, CVS:Normal, ABDOMEN:Normal, SKIN:Normal laboratory and microbiology Laboratory Tests 06/07/25 05:08 Test 06/07/25 05:08 Range/Units Serum Glucose 87 74-106 mg/dL Microbiology Date/Time Source Procedure Growth Status 05/31/25 14:10 Blood Blood Culture - Final NO GROWTH AFTER 5 DAYS OF INCUBATION. Complete Problem List/Assessment/Plan Problem List/Assessment/Plan ESRd on HD sepsis anemia, thrombocytopenia, neutropenia hx amylodoisis s/p treatment hyperkalemia tolerated dialysis today has tunnel HD catheter, BCX NG on admission reports feels tired and weak continue po BP meds, avoid hypotension renal diet Plan discussed with: Patient My Orders My Orders Orders - TOVA BRUCE MD Procedure Category Date Status Time Calcium Acetate PHA 06/07/25 In Process Capsule (Phoslo 08:00 Dialysis Nursing DIANNA 06/07/25 In Process Message 07:00 Document Fluid Input DIANNA 06/07/25 In Process And Outpu 07:00 Hemodialysis Orders ORDERS 06/07/25 Transmitted 07:39 Dietary Evaluation Review Comments: renal standard diet TOVA BRUCE MD Jun 07, 2025 12:49
[2025-06-07] MEDS ORDERED: DOXY100C79 PO (14:51)
[2025-06-07] MEDS ORDERED: PRED20TA2 PO (14:51)
[2025-06-07] MEDS ORDERED: CEFD300C2 PO (14:51)
[2025-06-07] MEDS ORDERED: IPRA0.00 IN (14:51)
--- NOTE | 2025-06-07 14:57 | DVHDS2 ---
Discharge Summary Date of Admission May 30, 2025 at 14:34 Date of Discharge: Jun 07, 2025 Admitting Diagnosis Severe dehydration Labs/Diagnostic Data: Laboratory Results Test 06/07/25 05:08 06/06/25 05:30 06/01/25 08:40 06/01/25 05:20 White Blood Count 3.0 10^3/uL (4.4-10.8) Red Blood Count 2.76 10^6/uL (4.5-5.90) Hemoglobin 9.2 g/dL (13.5-17.5) Hematocrit 27.7 % (41.0-53.0) Mean Corpuscular Volume 100.3 fL (80.0-100.0) Mean Corpuscular Hemoglobin 33.2 pg (28.0-32.0) Mean Corpuscular Hemoglobin Concent 33.1 g/dL (32.0-36.0) Red Cell Distribution Width 17.5 % (11.8-14.3) Platelet Count 133 10^3/uL (140-450) Mean Platelet Volume 7.4 fL (6.9-10.8) Neutrophils (%) (Auto) 48.6 % (37.0-80.0) Lymphocytes (%) (Auto) 23.4 % (10.0-50.0) Monocytes (%) (Auto) 11.2 % (0.0-12.0) Eosinophils (%) (Auto) 14.9 % (0.0-7.0) Basophils (%) (Auto) 1.9 % (0.0-2.0) Neutrophils # (Auto) 1.5 10 ^3/uL (1.6-8.6) Lymphocytes # (Auto) 0.7 10 ^3/uL (0.4-5.4) Monocytes # (Auto) 0.3 10 ^3/uL (0-1.3) Eosinophils # (Auto) 0.5 10 ^3/uL (0-0.8) Basophils # (Auto) 0.1 10 ^3/uL (0-0.2) Nucleated Red Blood Cells 0.1 % Sodium Level 144 mmol/L (136-145) Potassium Level 5.2 mmol/L (3.5-5.1) Chloride Level 103 mmol/L (98-107) Carbon Dioxide Level 27 mmol/L (20-31) Anion Gap 14 (5-15) Blood Urea Nitrogen 58 mg/dL (9-23) Creatinine 8.73 mg/dL (0.700-1.30) Glomerular Filtration Rate Calc 6 mL/min (>90) BUN/Creatinine Ratio 6.6 (10.0-20.0) Serum Glucose 87 mg/dL (74-106) Calcium Level 8.9 mg/dL (8.7-10.4) Phosphorus Level 6.9 mg/dL (2.4-5.1) Random Vancomycin Level 16.6 ug/mL (5-10) Differential Total Cells Counted 100.0 (100) Neutrophils % (Manual) 53 (37.0-80.0) Band Neutrophils % (Manual) 2 Lymphocytes % (Manual) 19 (10.0-50.0) Monocytes % (Manual) 10 (0-12) Eosinophils % (Manual) 16 (0-7) Basophils % (Manual) 0 (0.0-2.0) Metamyelocytes % (manual) 0 Myelocytes % (Manual) 0 Promyelocytes % (Manual) 0 Blast Cells % (Manual) 0 Reactive Lymphocytes 0 Platelet Estimate Decreased Clumped Platelets Many Influenza Type A Antigen Negative (Negative) Influenza Type B Antigen Negative (Negative) SARS-CoV-2 Antigen (Rapid) Negative (NEGATIVE) Total Bilirubin 0.4 mg/dL (0.2-1.0) Aspartate Amino Transferase (AST) 29 U/L (13-40) Alanine Aminotransferase (ALT) 26 U/L (7-40) Alkaline Phosphatase 75 U/L (46-116) Total Protein 5.2 g/dL (5.7-8.2) Albumin 3.5 g/dL (3.2-4.8) Test 05/31/25 19:36 05/31/25 06:00 05/30/25 09:57 Hepatitis A IgM Antibody Negative Hepatitis B Surface Antigen Negative (Negative) Hepatitis B Core IgM Antibody Negative (Negative) Hepatitis C Antibody Negative (Negative) Erythrocyte Sedimentation Rate 87 mm/hr (0-20) C-Reactive Protein High Sensitivity 17.07 mg/dL (<1.0) Lactic Acid Level 1.2 mmol/L (0.4-2.0) Lipase 29 U/L (12-53) Other Laboratory Tests 06/07/25 05:08 Brief Hx & Hospital Course: History of Present Illness Lowthers, Wilian is a 59-year-old male with past medical history of hypertension, hyperlipidemia, ESRD on HD, cancer, depression, and anxiety, who came to the hospital for nausea and vomiting. Patient states he has been experiencing nausea and vomiting intermittently for the last 10 days. He states he was last able to eat a sandwich a couple days ago and keep it down. Today after receiving fluids and medications he was able to eat some food and keep it down. Course of hospitalization Further workup the patient reveals that he has a has a history of treatment for amyloidosis. He recently had root canal surgery and has been antibiotic therapy. Chest x-ray reveals pulmonary vascular congestion as well as probable right lower lobe pneumonia. Patient was started on empiric antibiotic therapy with cefepime and vancomycin. Patient was subsequently weaned off of oxygen. Respiratory status as well as overall clinical status improved dramatically. Nephrology consultation was obtained, with the patient receiving hemodialysis while in the hospital, last treatment today. Patient is agreeable to be discharged home. He will be continued on antibiotic therapy with both cefdinir doxycycline as well as being provided prednisone 20 mg p.o. daily as well as having a refill for his duo nebs nebulizer treatment. He will follow up with his oncologist and stable cleaner at established appointments. He will make an appointment to see his PCP in 1-2 weeks. Patient was agreeable with discharge plan. All questions answered Physical examination General: Alert and Oriented x3. No acute distress. Well-nourished. Eyes: EOMI. Anicteric. HENT: Moist mucous membranes. Lungs: Clear to auscultation bilaterally. No accessory muscle use. Cardiovascular: Regular rate and rhythm. No murmur. No JVD. Abdomen: Soft, non-tender and non-distended. No palpable masses. Extremities: No edema. Non-tender. Skin: No rashes or lesions. Warm. Neurologic: No focal neurological deficits. CN II-XII grossly intact, but not individually tested. Psychiatric: Cooperative. Appropriate mood and affect. Total time spent with patient discussing and formulating plan of care: 35 minutes. This medical document was created using an electronic medical record system with [employer] system. Although this document has been carefully reviewed, there may still be some phonetic and typographical errors. These areas are purely typographical due to imperfections of the software programs, and do not reflect any compromise in the patient's medical care. Consults/Reason for consult Nephrology: Hemodialysis Condition at Discharge: Guarded Final Diagnosis/Problems List Sepsis -abdominal pain , unspecified -acute hypoxic respiratory failure -ESRD with hemodialysis -macrocytic anemia -accelerated hypertension -COPD -dyslipidemia -history of CA, amyloidosis -community-acquired pneumonia, probable Gram-positive/Gram-negative etiology Discharge Disposition: Home Discharge Instruct/Medications Diet: Cardiac 2g Na,low cholest, Renal Activity: No Restrictions, As Tolerated Follow Up/Referral: Follow up with PCP in 1-2 weeks Follow up with Oncology and stable cleaner as scheduled appointment within 1-2 weeks Medications: Doxycycline 100 mg p.o. b.i.d. x7 days Cefdinir 100 mg p.o. b.i.d. x7 days Prednisone 20 mg p.o. daily x7 days DuoNeb treatment q.6 hours as needed for shortness of breath Continue all previous home medication Scheduled Amlodipine Besylate (Amlodipine Besylate), 1 TAB PO DAILY, (Reported) Calcium Acetate (Phosphate Bin (Calcium Acetate), 2 CAP PO TID, (Reported) Carvedilol (Carvedilol), 1 TAB PO BID, (Reported) Cefdinir (Cefdinir), 1 CAP PO BID Cyclobenzaprine Hcl (Cyclobenzaprine Hcl), 10 MG PO TID Diclofenac Potassium (Diclofenac Potassium), 1 TAB PO TIDP Doxycycline (Monohydrate) (Doxycycline), 100 MG PO BID Gabapentin (Gabapentin), 1 CAP PO HS, (Reported) Lisinopril (Lisinopril), 1 TAB PO DAILY, (Reported) Pantoprazole Sodium Sesquihydr (Pantoprazole Sodium), 1 TAB PO DAILY, (Reported) Prednisone (Prednisone), 20 MG PO DAILY Trazodone Hcl (Trazodone Hcl), 3 TAB PO HS, (Reported) Scheduled PRN Ipratropium-Albuterol (Ipratropium [place]/Albut), 1 DARRYL IN Q6HP PRN 36 Discharge Statement: "Patient was advised to return to the ER or call 911 if any headaches, dizziness, shortness of breath, chest pain, abdominal pain, bleeding, fevers, or worsening of medical condition. Patient was counseled about treatment plan, medications, possible side effects, patientverbalized understanding. All questions were answered to the best of my ability. This discharge took greater then 30 minutes in planning, reviewing documentation, counseling the patient, and discussing with other team members." ASSESSMENT ASSESSMENT Assessment Sepsis Date of Service: Jun 07, 2025 Billing Provider: TAQUERIA STEELE NP Common Visit Codes: 81719-LUZ/OBS DISCH DAY >30min TAQUERIA STEELE NP Jun 07, 2025 14:57
== END 2025-06-07 16:52 | disposition home or self-care (01) | DRG 871 ==
LOC: ER 08:22 → OVERFLOW 14:34 → EAST 18:13
PROVIDERS: ADMIT Nurse Practitioner Acute Care; ATTEND Nurse Practitioner Acute Care
PROC: 5A1D70Z Performance of Urinary Filtration, Intermittent, Less than 6 Hours Per Day (ICD-10-PCS; 2025-05-31)
PROC: 30233N1 Transfusion of Nonautologous Red Blood Cells into Peripheral Vein, Percutaneous Approach (ICD-10-PCS; principal; 2025-06-02)
PROC: 5A1D70Z Performance of Urinary Filtration, Intermittent, Less than 6 Hours Per Day (ICD-10-PCS; 2025-06-03)
PROC: 5A1D70Z Performance of Urinary Filtration, Intermittent, Less than 6 Hours Per Day (ICD-10-PCS; 2025-06-05)
PROC: 5A1D70Z Performance of Urinary Filtration, Intermittent, Less than 6 Hours Per Day (ICD-10-PCS; 2025-06-07)
DX: A41.9 Sepsis, unspecified organism (principal); J15.69 Pneumonia due to other Gram-negative bacteria; N18.6 End stage renal disease; J15.9 Unspecified bacterial pneumonia; J96.01 Acute respiratory failure with hypoxia; I12.0 Hypertensive chronic kidney disease with stage 5 chronic kidney disease or end stage renal disease; D70.9 Neutropenia, unspecified; D69.6 Thrombocytopenia, unspecified; D63.1 Anemia in chronic kidney disease; J44.0 Chronic obstructive pulmonary disease with (acute) lower respiratory infection; Z99.2 Dependence on renal dialysis; F32.A Depression, unspecified; Z20.822 Contact with and (suspected) exposure to COVID-19; E86.0 Dehydration; D53.9 Nutritional anemia, unspecified; E78.5 Hyperlipidemia, unspecified; F41.9 Anxiety disorder, unspecified; R19.7 Diarrhea, unspecified; E87.5 Hyperkalemia; F17.210 Nicotine dependence, cigarettes, uncomplicated
CPT/HCPCS: 36415; 71045; 74176; 80048; 80053; 80074; 80202; 83605; 83690; 84100; 85007; 85025; 85027; 85652; 86141; 86850; 86900; 86901; 86920; 87040; 87426; 87804; 90935; 94640; 96374; 96375; G0378; J2405; J2470; J2543